=== PATIENT | female | born 1990 | race Caucasian/White ===

== ENCOUNTER → 2024-05-19 | Outpatient (CLI) | payer BC, SELFPAY ==
--- OUTSIDE RECORDS SUMMARY | 2024-05-19 19:02 | XMS RPT_ITS | CCD ---
Author Organization [facility] Care Team Providers Care Atmospheric Chemist Name Role Phone Prabhakar Calderon MD Primary Care Provider LOY JOHNSON Attending Unavailable PRABHAKAR CALDERON Primary Care Unavailable NORMA ANTONY Admitting Unavailab Prabhakar Avina MD Primary Care Provider [phone] Prabhakar Calderon MD Primary Care Provider ISH SHERMAN Attending Unavailable PRABHAKAR CALDERON Primary Care Unavailable ISH SHERMAN Attending Unavailable PRABHAKAR CALDERON Referring Unavailable PRABHAKAR CALDERON Primary Care Unavailable Allergies Allergy Classification Reported Allergen(s) Allergy Type Date of Onset Reaction(s) Facility Lanolin (1 source) Lanolin Drug Allergy 08-19-2017 Other: See Comments [facility] (20 sources) Lanolin; Translations: [LANOLIN] Drug Allergy 08-19-2017 Other: See Comments [facility] Medications Current Medications Medication Drug Class(es) Dates Sig (Normalized) Sig (Original) ibuprofen 600 mg oral tablet (7 sources) Nonsteroidal Anti-inflammatory Drug Start: 10-18-2022 take 1 tablet by mouth every six hours as needed ibuprofen (MOTRIN) 600 mg tablet Take 1 tablet by mouth every 6 hours as needed for pain. 30 tablet 0 10/18/2022 Active Comment on above: Take 1 tablet by pankaj th every 6 hours as needed for pain. norethindrone 0.35 mg oral tablet (4 sources) Start: 11-28-2022 take 1 tablet by mouth once daily Norethindrone, Contraceptive, (ORTHO MICRONOR) 0.35 mg tablet Take 1 tablet by mouth once daily. 84 tablet 4 11/28/2022 Active Comment on above: Take 1 tablet by pankaj th once daily. Xxciilnz-Hl-Dob-Fe-F A tab (12 sources) Start: 08-30-2022 take 1 tablet by mouth once daily Lntmnwyp-Bu-Pry- Fe-FA tab Take 1 tablet by mouth once daily. 0 08/30/2022 Active Comment on above: Take 1 tablet by pankaj th once daily. sertraline 25 mg oral tablet (7 sources) Serotonin Reuptake Inhibitor Start: 11-28-2022 take 1 tablet by mouth once daily sertraline (ZOLOFT) 25 mg tablet Take 1 tablet by mouth once daily. 90 tablet 4 11/28/2022 Active Start: 10-23-2022 End: 11-28-2022 take 1 tablet by mouth once daily sertraline (ZOLOFT) 50 mg tablet Take 1 tablet by mouth once daily. 30 tablet 11 10/23/2022 11/28/2022 Discontinued Comment on above: Take 1 tablet by pankaj th once daily. Completed/Discontinued Medications Medication Drug Class(es) Dates Sig (Normalized) Sig (Original) levonorgestrel 0.552854 mg/hr intrauterine system (7 sources) Progestin, Progestin-containi ng Intrauterine Device Start: 09-21-2013 End: 06-10-2022 levonorgestrel (MIRENA) 20 mcg/24 hour (5 years) IUD 1 Each by INTRAUTERINE route one time only. 0 09/21/2013 06/10/2022 Discontinued Comment on above: 1 Each by INTRAUTERI NE route one time only. Problems Active Problems Problem Classification Problem Date Documented Date Episodic/Chronic Miscellaneous mental health disorders (1 source) depression; Translations: [ depression] Episodic Mood disorders (1 source) Recurrent major depressive episodes, moderate ; Translations: [Major depressive disorder, recurrent, moderate] Chronic Other bone disease and musculoskeletal deformities (7 sources) Idiopathic scoliosis of thoracic spine; Translations: [Juvenile idiopathic scoliosis, thoracic region] Onset: 12-20-2016 12-20-2016 Chronic Other female genital disorders (1 source) Vaginal discharge; Translations: [Other specified noninflammatory disorders of vagina] 01-28-2024 Episodic Other female genital disorders (1 source) Burning sensation of vagina; Translations: [Unspecified condition associated with female genital organs and menstrual cycle] 01-28-2024 Episodic Other screening for suspected conditions (not mental disorders or infectious disease) (4 sources) Patient encounter status; Translations: [Encounter for screening for nuchal translucency] Episodic Residual codes; unclassified (1 source) Gestation period, 12 weeks; Translations: [12 weeks gestation of ] Episodic Residual codes; unclassified (1 source) Gestation period, 13 weeks; Translations: [13 weeks gestation of ] Episodic Residual codes; unclassified (1 source) Gestation period, 21 weeks; Translations: [21 weeks gestation of ] Episodic Residual codes; unclassified (1 source) Gestation period, 36 weeks; Translations: [36 weeks gestation of ] Episodic Past or Other Problems Problem Classification Problem Date Documented Da te Episodic/Chronic Early or threatened labor (3 sources) Uterine contractions present; Translations: [False labor, unspecified] Onset: 10-16-2022 Resolved: 10-16-2022 10-16-2022 Episodic Genitourinary symptoms and ill-defined conditions (9 sources) Dysuria; Translations: [Dysuria] Onset: 04-01-2008 Resolved: 10-22-2022 04-01-2008 Episodic Other bone disease and musculoskeletal deformities (17 sources) Idiopathic kyphoscoliosis; Translations: [Other idiopathic scoliosis, site unspecified] Onset: 04-13-2007 Resolved: 10-16-2022 04-13-2007 Chronic Other bone disease and musculoskeletal deformities (10 sources) Juvenile idiopathic scoliosis, thoracic region; Translations: [Scoliosis [and kyphoscoliosis], idiopathic] Onset: 12-20-2016 Resolved: 10-16-2022 12-20-2016 Chronic Other female genital disorders (9 sources) Female genital organ symptoms; Translations: [Unspecified condition associated with female genital organs and menstrual cycle] Onset: 04-01-2008 Resolved: 10-22-2022 04-01-2008 Episodic Other inflammatory condition of skin (9 sources) Pruritus of genital organs; Translations: [Anogenital pruritus, unspecified] Onset: 04-01-2008 Resolved: 10-22-2022 04-01-2008 Episodic Other and delivery including normal (20 sources) care status; Translations: [Encounter for supervision of other normal , first trimester] Onset: 06-10-2022 Resolved: 10-18-2022 Episodic Spondylosis; intervertebral disc disorders; other back problems (20 sources) Pain in thoracic spine; Translations: [Pain in thoracic spine] Onset: 12-20-2016 Resolved: 10-16-2022 12-20-2016 Episodic Results Test Name Value Interpretation Reference Range Facil ity BACTERIAL VAGINOSIS NAATon 0 01-28-2024 Lactobacillus crispatus+gasseri+j ensenii + Gardnerella vaginalis + Atopobium vaginae rRNA JODY+probe Ql (Vag fld) Negative Normal Negative for bacterial vaginosis [facility] Comment on above: Order Comment: Speci men Type: SWAB Ordering Facility: [facility] Address: [address] [place] [address] Performed By: #### 3 [id number], BVAMP #### [facility] CLIA [id number] [address] [place] [address] [place] C. trachomatis+N. gonorrhoea e DNA JODY+probe Ql (Unsp spec)on 01-28-2024 C. trachomatis rRNA JODY+probe Ql (Unsp spec) Negative Normal Negative for Chlamydia trachomatis by amplificaton [facility] Comment on above: Order Comment: Speci men Type: SWAB Ordering Facility: [facility] Address: [address] [place] [address] Performed By: #### 3 6902-5, BVAMP #### [facility] CLIA [id number] [address] [place] [address] [place] N. gonorrhoeae rRNA JODY+probe Ql (Unsp spec) Negative Normal Negative for Neisseria gonorrhoeae by amplification [facility] Comment on above: Order Comment: Speci men Type: SWAB Ordering Facility: [facility] Address: [address] [place] [address] Performed By: #### 3 6902-5, BVAMP #### [facility] CLIA [id number] [address] [place] [address] [place] ELEUTERIO/TRICHOMONAS NAATon 0 7- C. glabrata RNA JODY+probe Ql (Vag fld) Negative Normal Negative for Eleuterio glabrata [facility] Comment on above: Order Comment: Speci men Type: SWAB Ordering Facility: [facility] Address: [address] [place] [address] Performed By: #### C VTV #### [facility] CLIA [id number] [address] [place] [address] [place] Eleuterio sp DNA JODY+probe Ql (Vag fld) Positive Abnormal Negative for Eleuterio species [facility] Comment on above: Order Comment: Speci men Type: SWAB Ordering Facility: [facility] Address: [address] [place] [address] Performed By: #### C VTV #### [facility] CLIA [id number] [address] [place] [address] OF [place] T. vaginalis DNA JODY+probe Ql (Unsp spec) Negative Normal Negative for Trichomonas vaginalis by amplification [facility] Comment on above: Order Comment: Speci men Type: SWAB Ordering Facility: [facility] Address: [address] [place] [address] Performed By: #### C VTV #### [facility] CLIA [id number] [address] [place] [address] OF [place] CNOVon 01-28-2024 CNOV Office Visit (OBGYWM ) DANIA SANTOS ([id number]) 1990 F Date Time Provider Department 01/28/24 9:30 AM ISH SHERMAN OBHERIBERTO During your visit today, we recorded the following information about you: Blood pressure Weight Last Period 100/68 69.5 kg 01/11/24 Ish Sherman MD 01/28/2024 10:52 AM Signed Airfield Services Officer offered: Patient accepts, visit chaperoned by Dulce Ott LPN. Dania Santos is a 33 year old female who presents for problem visit with recurrent yeast like sympotoms despite treatment with diflucan twice and monistat. Now with partner of one years duration. Primary sx are itching and burning and would like sti screening. 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 PMH - PAST MEDICAL HISTORY OF 12/01/1997 Color Vision - Normal PAST SURGICAL HISTORY Procedure Laterality Date DANDC, DIAG AND/OR THERAPEUTIC TAB PAST SURGICAL HISTORY OF 2005 wisdom teeth removed PAST SURGICAL HISTORY OF 2009 lap mesenteric cyst removal TONSILLECTOMY PRIMARY/SECONDARY AGE 12/> 02/2007 FAMILY HISTORY Problem Relation Age of Onset Psychiatry Mother depression Migraines Mother COPD Father Stroke Father 55 other (lung cancer) Father 65 smoker Ischemic Heart Disease Father Multiple Sclerosis Sister 32 Cancer Maternal Grandmother Melanoma Maternal Grandmother Cancer Maternal Grandfather prostate No Known Problems Daughter Breast Cancer No Family History Ovarian cancer No Family History Uterine Cancer No Family History Social History Tobacco Use Smoking status: Former Packs/day: .3 Types: Cigarettes Quit date: 07/13/2015 Years since quittin.5 Smokeless tobacco: Never Vaping Use Vaping Use: Former Substances: Nicotine Substance Use Topics Alcohol use: Yes Alcohol/week: 4.0 standard drinks of alcohol Types: 4 Glasses of Wine (5oz) per week Comment: weekly - bottle over the week Drug use: Never Current Outpatient Medications Medication Sig Norethindrone, Contraceptive, (ORTHO MICRONOR) 0.35 mg tablet Take 1 tablet by mouth once daily. (Patient not taking: Reported on 01/05/2024) sertraline (ZOLOFT) 25 mg tablet Take 1 tablet by mouth once daily. (Patient not taking: Reported on 01/05/2024) ibuprofen (MOTRIN) 600 mg tablet Take 1 tablet by mouth every 6 hours as needed for pain. (Patient not taking: Reported on 01/05/2024) Ypblrzlv-Id-Nkp-Fe-FA tab Take 1 tablet by mouth once daily. (Patient not taking: Reported on 01/05/2024) No current facility-administered medications for this visit. Allergies As of Date: 01/28/2024 Allergen Noted Reaction LANOLIN 08/19/2017 Other: See Comments Fully Assessed 01/28/2024 REVIEW OF SYSTEMS Abdomen: No bloating, early satiety, indigestion, or increased flatulence. No abdominal pain, nausea, vomiting, diarrhea, or constipation. Bladder: No dysuria, gross hematuria, urinary frequency, urinary urgency, or incontinence. Breast: No breast lumps, nipple d/c, overlying skin changes, redness or skin retraction. Expanded ROS: N/A Allergies and current medication updated:Yes EXAM: BP 100/68 Wt 153 lb 3.2 oz (69.5kg) LMP 01/11/2024 GENERAL: pleasant, female in no apparent distress ABDOMEN: soft, non-tender, and no masses PELVIC: external genitalia normal, normal Bartholin's glands, urethra, Mcmurray's glands, no vulvar lesions, no cervical lesions, good vaginal support, physiologic discharge present, normal appearing perineal body and perianal region, well estrogenized, scant clumpy discharge but monistat in last 24 hrs BIMANUAL: uterus normal size, shape and consistency, anteverted, no adnexal masses, and non-tender ASSESSMENT AND PLAN: Encounter Diagnosis ICD-10-CM 1. Screen for STD (sexually transmitted disease) Z11.3 2. Vaginal discharge N89.8 3. Vaginal burning N94.9 cultures submitted Ish Sherman MD Allergies As of Date: 01/28/2024 Noted Allergy Reaction LANOLIN 08/19/2017 14 - Other: See Comments Comments: itching Date Reviewed: 01/28/2024 Reviewed by: Mary Macdonald MA - Fully Assessed Reason for Visit: STD [102] Cmt: check Primary Visit Diagnosis:Screen for STD (sexually transmitted disease) [Z11.3] Other Visit Diagnoses:Vaginal discharge [N89.8] Vaginal burning [N94.9] Order(s):GONORRHEA/CH LAMYDIA NAAT [SQGCCT] Order #: [id number] SYPHILIS TOTAL W/REFLEX [SQSYPHTX] Order #: [id number] FUTUR (more content not included)... Normal [facility] CNOVon 01-05-2024 CNOV Office Visit (OBGYWM ) DANIA SANTOS ([id number]) 1990 F Date Time Provider Department 01/05/24 8:20 AM ISH SHERMAN OBGYWM During your visit today, we recorded the following information about you: Weight Height Last Period 68.9 kg 1.689 m 12/12/23 Ish Sherman MD 01/05/2024 9:05 AM Signed Dania is a 33 year old who presents for an annual gynecologic exam , 14 mo post ,with complaints, including 3 yeast infections over the course of the past months that have now resolved. . Stopped BF 6 months ago Menses: q 4-6 weeks with 2 -6 days of flow. 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: Sexual Activity: Yes; Male Contraception: Vasectomy 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 PMH - PAST MEDICAL HISTORY OF 12/01/1997 Color Vision - Normal PAST SURGICAL HISTORY Procedure Laterality Date DANDC, DIAG AND/OR THERAPEUTIC TAB PAST SURGICAL HISTORY OF 2005 wisdom teeth removed PAST SURGICAL HISTORY OF 2009 lap mesenteric cyst removal TONSILLECTOMY PRIMARY/SECONDARY AGE 12/> 02/2007 FAMILY HISTORY Problem Relation Age of Onset Psychiatry Mother depression Migraines Mother COPD Father Stroke Father 55 other (lung cancer) Father 65 smoker Ischemic Heart Disease Father Multiple Sclerosis Sister 32 Cancer Maternal Grandmother Melanoma Maternal Grandmother Cancer Maternal Grandfather prostate No Known Problems Daughter Breast Cancer No Family History Ovarian cancer No Family History Uterine Cancer No Family History SOCIAL HISTORY Social History Tobacco Use Smoking status: Former Packs/day: .3 Types: Cigarettes Quit date: 07/13/2015 Years since quittin.4 Smokeless tobacco: Never Vaping Use Vaping Use: Former Substances: Nicotine Substance Use Topics Alcohol use: Yes Alcohol/week: 4.0 standard drinks of alcohol Types: 4 Glasses of Wine (5oz) per week Comment: weekly - bottle over the week Drug use: Never REVIEW OF SYSTEMS Abdomen: No abdominal pain, nausea, vomiting, diarrhea, or constipation. No bloating, early satiety, indigestion, or increased flatulence. Bladder: No dysuria, gross hematuria, urinary frequency, urinary urgency, or incontinence. Breast: No breast lumps, nipple d/c, overlying skin changes, redness or skin retraction. Allergies and current medication updated:Yes EXAM: Ht 5' 6.5 (1.69m) Wt 152 lb (68.9kg) LMP 12/12/2023 BMI 24.17 kg/(m2). GENERAL: pleasant, female in no apparent distress HEENT: Normocephalic, atraumatic, mucus membranes moist, and no lesions NECK: Supple, full range of motion, no adenopathy, and thyroid normal DERMATOLOGY: Normal, without lesions, non-icteric, and non-hirsute BREAST: soft, non-tender, symmetric, no dominant mass, normal nipple-areolar complex, no lymphadenopathy, and no nipple discharge CHEST: Normal inspiratory effort ABDOMEN: soft, non-tender, and no masses PELVIC: external genitalia normal, normal Bartholin's glands, urethra, Mcmurray's glands, no vulvar lesions, no cervical lesions, good vaginal support, physiologic discharge present, normal appearing perineal body and perianal region, well estrogenized BIMANUAL: uterus normal size, shape and consistency, anteverted, no adnexal masses, non-tender, and no cervical motion tenderness RECTOVAGINAL: deferred. NEURO: alert and oriented x3,exam grossly non-focal EXTREMITIES: normal ASSESSMENT/PLAN: 1) Health maintenance: Pap done with reflex HPV. 2) Contraception: vasectomy. Contraceptive options reviewed and information provided. 3) STD screening: Declined STD check. 4) Follow up one year or sooner as needed MD Wilfredo Laureano Rebecca L, MD 01/16/2024 5:17 PM Signed Send letter about normal pap if she does not have mychart. Tory Villalobos MD Referring Provider: PRABHAKAR CALDERON [[id number]] Allergies As of Date: 01/05/2024 Noted Allergy Reaction LANOLIN 08/19/2017 14 - Other: See Comments Comments: itching Date Reviewed: 01/05/2024 Reviewed by: Nida Thakur MA - Fully Assessed Reason for Visit: Yearly Exam [187] Primary Visit Diagnosis:Encounter for gynecological examination (general) (routine) without abnormal findings [Z01.419] Other Visit Diagnoses:Screening for cervical cancer [Z12.4] Encounter for screening for human papillom (more content not included)... Normal [facility] HIGH RISK HUMAN PAPILLOMA SREEKANTH (HPV), PCR FOR DETECTION AND GENOTYPINGon 01-05-2024 HPV 16 Ag Ql (Unsp spec) Not detected Normal Not detected [facility] Comment on above: Order Comment: Speci men Type: FLUID SPECIMEN Ordering Facility: [facility] Address: [address] [place] [address] Performed By: #### L [id number], HPVHRT #### [facility] CLIA [id number] [address] [place] [address] [place] HPV 18 Ag Ql (Unsp spec) Not detected Normal Not detected [facility] Comment on above: Order Comment: Speci men Type: FLUID SPECIMEN Ordering Facility: [facility] Address: [address] [place] [address] Performed By: #### L [id number], HPVHRT #### [facility] CLIA [id number] [address] [place] [address] [place] HPV 31+33+35+39+45+51+5 2+56+58+59+66+68 DNA JODY+probe Ql (Cvx) Not detected Normal Not detected [facility] Comment on above: Order Comment: Speci men Type: FLUID SPECIMEN Ordering Facility: [facility] Address: [address] [place] [address] Result Comment: High Risk HPV Other Type includes HPV types 31, 33, 35, 39, 45, 51, 52, 56, 58, 59, 66 and 68. Performed By: #### L [id number], HPVHRT #### [facility] CLIA [id number] [address] [place] [address] [place] PAP TESTon 01-05-2024 ADEQUACY Satisfactory for interpretation. Normal [facility] Comment on above: Order Comment: Speci men Type: FLUID SPECIMEN Ordering Facility: [facility] Address: [address] [place] [address] Performed By: #### L [id number], HPVHRT #### [facility] CLIA [id number] [address] [place] [address] [place] CASE REPORT Normal [facility] Comment on above: Order Comment: Speci men Type: FLUID SPECIMEN Ordering Facility: [facility] Address: [address] [place] [address] Result Comment: Gyne cologic Cytology Report Case: [id number] Authorizing Provider: Ish Sherman MD Collected: 01/05/2024 09:31 AM Ordering Location: OB/Gynecology Received: 01/05/2024 12:28 PM First Screen: [place], [place], [place], [facility] Specimen: Pap Test, ThinPrep, Cervix Performed By: #### L [id number], HPVHRT #### [facility] CLIA [id number] [address] [place] [address] [place] CLINICAL HISTORY, CYTOLOGY, HEALTH INFORMATION SPECIALIST Routine Exam Normal [facility] Comment on above: Order Comment: Speci men Type: FLUID SPECIMEN Ordering Facility: [facility] Address: [address] [place] [address] Performed By: #### L [id number], HPVHRT #### [facility] CLIA [id number] [address] [place] [address] [place] FINAL PERFORMING LAB Normal [facility] Comment on above: Order Comment: Speci men Type: FLUID SPECIMEN Ordering Facility: [facility] Address: [address] [place] [address] Result Comment: Tech nical component, attendant coin operated laundry screening performed at [facility], [address] [place] [address] CLIA# [id number] Diagnostic interpretation performed at [facility], [address] [place] [address] [place] [address] CLIA# [id number] Braille Teacher: Paresh Cornejo M.D. Performed By: #### L [id number], HPVHRT #### [facility] CLIA [id number] [address] [place] [address] [place] HPV REFLEX Yes HPV Normal [facility] Comment on above: Order Comment: Speci men Type: FLUID SPECIMEN Ordering Facility: [facility] Address: [address] [place] [address] Performed By: #### L [id number], HPVHRT #### [facility] CLIA [id number] [address] [place] [address] [place] INTERPRETATION, CYTOLOGY, HEALTH INFORMATION SPECIALIST Normal [facility] Comment on above: Order Comment: Speci men Type: FLUID SPECIMEN Ordering Facility: [facility] Address: [address] [place] [address] Result Comment: Nega tive for intraepithelial lesion or malignancy. Performed By: #### L [id number], HPVHRT #### [facility] CLIA [id number] [address] [place] [address] [place] LMP 12/12/2023 Normal [facility] Comment on above: Order Comment: Speci men Type: FLUID SPECIMEN Ordering Facility: [facility] Address: [address] [place], [place] [id number] Performed By: #### L [id number], HPVHRT #### [facility] CLIA [id number] [address] [place] [address] [place] PAP DISCLAIMER COMMENT The Pap Smear is a screening test for cervical cancer. False negative results occur with all screening tests, emphasizing the need for rescreening at recommended intervals, and clinical correlation. Normal [facility] Comment on above: Order Comment: Speci men Type: FLUID SPECIMEN Ordering Facility: [facility] Address: [address] [place] [address] Performed By: #### L [id number], HPVHRT #### [facility] CLIA [id number] [address] [place] [address] [place] PAP DAY GUARD COMMENT This specimen has been analyzed by the ThinPrep Imaging System, an automated imaging and review system, which assists the laboratory in evaluating cells on ThinPrep Pap tests. Following automated imaging, selected zamora from every slide are reviewed by a attendant coin operated laundry. Normal [facility] Comment on above: Order Comment: Speci men Type: FLUID SPECIMEN Ordering Facility: [facility] Address: [address] [place] [address] Performed By: #### L [id number], HPVHRT #### [facility] CLIA [id number] [address] [place] [address] [facility] CNDSon 10-18-2022 [facility] HNO ID: [id number] Author: Tiffanie Morel APRN.SEA Service: Obstetrics Author Type: Coal Grader Type: Discharge Summary Filed: 10/18/2022 7:47 AM Note Text: Attestation signed by Franci Mccarthy MD at 10/18/2022 8:53 AM I reviewed the pertinent patient history, HPI, vitals, and hospital course and agree with the CN's recommendation for care and disposition home. Franci Mccarthy MD DISCHARGE SUMMARY OBSTETRICS PATIENT NAME: Dania Santos ADMISSION DATE: 10/16/2022 DISCHARGE DATE: 10/18/2022 Attending Physician: Loy Johnson MD Code Status: Not on file Treatment Team: Attending Provider: Loy Johnson MD Reason for Hospitalization: Intrauterine . Principal Problem (Resolved): Encounter for elective induction of labor POA: Yes Active Problems: Chronic midline low back pain without sciatica POA: Yes Resolved Problems: Uterine contractions POA: Unknown PROCEDURES/SURGERY DURING HOSPITALIZATION: Delivery Summary: Armani Santos [[id number]] Delivery Information: Delivery Date: 10/16/22 Delivery type: Vaginal, Spontaneous Delivering Clinician: Annika Aparicio MD Vacuum Used: No Forceps Used: No Shoulder Dystocia Present: No Lacerations: None Episiotomy: None Maidens: Gender: Female Weight (grams): 3561 g One Minute : 8 Five Minute : 9 Procedures (if applicable) Hospital Course: 32 year old female who is Day #2 from delivery as noted above. Pt's peripartum course was complicated by CHRONIC BACK PAIN. The delivery was uncomplicated. Mental health issues addressed during course. No notes on file Consulting Teams During Hospitalization: Anesthesiology: EPIDURAL Patient Condition @ Discharge: Good Discharge Disposition: Home/Self Care Specific Concerns for Follow-up Post Discharge: Routine Care, Mental Health, Anemia, Incisional/Perineal Care, and Contraceptive Plan Information Provided to Patient: Activity When You Leave the Hospital Gradually increase your activity until back to normal. Walking and stairs as tolerated. You are expected to maintain pelvic rest for six weeks post which includes no sexual activity, tampons or douching. You may drive as tolerated You may shower daily. Gently pat your perineum with a soapy washcloth and rinse. Sitz baths are also helpful, but avoid baths until your bleeding has stopped. Diet Instructions Resume a regular diet with emphasis on healthy and iron rich foods. Nursing moms need 500 EXTRA calories a day to support breast milk production. Wound/Surgical Site Care Use chaparro/squirt bottle to rinse your perineal area with warm water after urination or bowel movements Use chaparro/squirt bottle to rinse your perineal area with warm water until vaginal bleeding/drainage ceases You may spot bleed for up to six week post- Discharge Medications: Current Discharge Medication List START taking these medications ibuprofen (MOTRIN) 600 mg Take 600 mg by mouth every 6 hours as needed for pain. Qty: 30 tablet Refills: 0 CONTINUE these medications which have NOT CHANGED Mqkjjtff-Wb-Imq-Fe-FA 1 tablet Take 1 tablet by mouth once daily. ALLERGIES Allergen Reactions Lanolin Other: See Comments itching Future Appointments: Follow Up Appointments Follow-Up Appointment With: Provider When: In 6 weeks Patient/Parents to call for appointment?: Yes Follow-Up Appointment With primary provider in 2 weeks Patient/Parents to call for appointment?: Yes I have performed the substantive portion including uqoe-zg-bbiy and relevant services for a total of >30 minutes. Plan of care discussed with: Provider, RN, Patient. SIGNATURE: Tiffanie Alcala APRN.CNM DATE: October 18, 2022 TIME: 7:46 AM Normal [facility] ANES POSTPROC EVALon 023 ANES POSTPROC EVAL HNO ID: [id number] Author: Faisal Carlin APRN.CRNA Service: Anesthesiology Author Type: Nurse Facilities Assistant Type: Anesthesia Postprocedure Evaluation Filed: 10/17/2022 9:34 AM Note Text: POST ANESTHESIA EVALUATION NOTE : 1990 Procedure Summary Date: 10/16/22 Room / Location: Anesthesia Start: 1832 Anesthesia Stop: 2242 Procedure: LABOR ANALGESIA Diagnosis: Scheduled Providers: Responsible Provider: Giuseppe Loza APRN.CRNA Anesthesia Type: epidural ASA Status: 2 Anesthesia Type: epidural Last Vitals Vitals Value Taken Time BP 111/66 10/17/22 0815 Temp 36.4 ?C (97.5 ?F) 10/17/22 08 Pulse 81 10/17/22 0815 Resp 16 10/17/22 0815 SpO2 98 % 10/17/22814 Tom, Girl Dania Fishman [[id number]] Baby Delivery: 10/16/2022 2243 Post Anesthesia Patient Status Patient Evaluation: bedside. Neurological Status: aware and responsive. Pulmonary Status: breathing comfortably on room air Pain Management: clinically adequate Postoperative Hydration: acceptable. Intraoperative Events: (AT am SYNTHETIC CLOTH BINDING CUTTER report off received notification of potential PPD occurance. This morning's one-on-one interview, with significant other present, patient bed in high hensley position with lights on and window open performing normal post delivery activities. No signs and symptoms at this time of PPDH. Education provided on signs and symptoms with conservative intervention. Currently, eating am meal and drinking caffienated beverage. ) no significant anesthesia events Recommendation: continue current plan of care. Anesthesia Observations No Documentation SIGNATURE: Faisal Carlin APRN.SYNTHETIC CLOTH BINDING CUTTER PATIENT NAME: Dania Santos DATE: October 17, 2022 TIME: 9:04 AM CSN: [id number] Normal [facility] LD NOTEon 10-17-2022 LD NOTE HNO ID: [id number] Author: Tiffanie Lake MD Service: Obstetrics Author Type: Resident Type: LANDD Delivery Note Filed: 10/16/2022 11:04 PM Note Text: Attestation signed by Annika Aparicio MD at 10/16/2022 11:12 PM I was present for the entire procedure and agree with above Annika Aparicio MD OBSTETRICS DELIVERY SUMMARY - VAGINAL DELIVERY Gestational Age at Delivery: 39w3d Service Date: 10/16/2022 Service Time: 11:02 PM Labor Events Rupture Date: 10/16/2022 Rupture Time: 7:50 PM Total Time from ROM to Delivery: 2h 53m Rupture Type: AROM Total Hours from ROM to Onset of Labor hours Fluid Color: Clear Fluid Odor: No Odor Induction: Yes Induction Method: AROM;Oxytocin Armani Santos [[id number]] Episiotomy/Laceration : Episiotomy: None Lacerations: None Date and Time of : Date of : 10/16/22 Time of : 2242 Delivery Information: Primary Reason for Delivery : Elective Induction Additional Clinicial Indicator(s) for delivery: N/A Delivery type: Vaginal, Spontaneous Intrapartum Complications: None Delivery between 24 - 34 weeks?: No Presentation: Vertex Shoulder Dystocia Present: No Vacuum Used: No Forceps Used: No Presentation AND Position Presentation: Vertex Position: OA Cord: Complications: None Delayed Cord Clamping: Greater than 60 sec Placenta: Delivered: 10/16/2022 10:50 PM Removal: Spontaneous Appearance: Intact Anesthesia: Method: Epidural Measurements, Apgars: Weight: 7 lb 13.6 oz Weight (gms): 3561 g One Minute : 8 Five Minute : 9 Resuscitation Team Present: No I/O Blood Loss per time range on right. 10/16/22 1043 - 10/16/22 2301 Calculated Blood Loss (mL) Hospital Encounter 300 Total 300 cc Clinical Course: Dania Santos is a 32 year old year old female who presented to [facility] with Estimated Date of Delivery: 10/20/22 at 39w3d for Elective Induction of Labor . Her course was complicated by chronic low back pain. The patient was GBS negative. Labor Course: At the time of presentation the patient was found to be 4cm dilated, 70% effaced, and at -3 station. She was started on pitocin for induction. Amniotomy was performed for clear fluid. She then received an epidural for maternal analgesia and progressed to complete cervical dilation with the vertex at +1 station. She then began to push. As the vertex was , the patient was prepped and draped in a normal sterile fashion in the dorsal lithotomy position. The vertex delivered over an intact perineum from the occiput anterior position which restituted to the maternal left. After delivery of the head, the anterior and posterior shoulders were then delivered without difficulty followed by the remainder of the 's body. The was crying spontaneously. Delayed cord clamping was performed for one minute. The cord was then doubly clamped and cut and the infant was passed above for skin to skin. The placenta delivered spontaneously. pitocin was then started. Vaginal exploration revealed no lacerations. Cervical exploration revealed no lacerations. Excellent hemostasis was noted. The patient tolerated the procedure well without complications. All needle, sponge and instrument counts were correct x2. A digital sweep of the vaginal canal was performed by Tiffanie Lake MD and it was ascertained that no instruments or other foreign bodies are retained within the cavity. Sponge, lap, and needle counts were correct times two. Mother and baby are stable and bonding and skin to skin. Baby is in mother's arms. Expected post-delivery care and anticipated transfer reviewed. Plan of care discussed with: Provider, RN, Patient. 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 Tracheostomy tube not present Mallampati: II. TM distance: >3 FB. Neck ROM: full ROM without neurological symptoms. Mouth opening: adequate. Short neck: no. Thick neck: no DENTAL Normal dental observations. Dental findings: teeth intact. II - ANESTHESIA PLAN ASA Score: 2 Anesthetic Plan: epidural The patient is not a current smoker. NPO Status: adequate Beta Jitendra Monitoring Plan Monitoring plan: standard ASA. Post Procedure Analgesic Plan Postoperative analgesic plan: multimodal analgesia. Informed Consent Patient / Responsible Green Party agrees to proceed: yes Patient / Surrogate agrees to blood products: blood products not planned Potential Anesthesia issues that may suggest increased risk of complications or contraindication to planned procedure: none. 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 - PMH - PAST MEDICAL HISTORY OF 12/01/1997 Color Vision - Normal - Vaginal delivery 2012 PAST SURGICAL HISTORY Procedure Laterality Date - DANDC, DIAG AND/OR THERAPEUTIC TAB - PAST SURGICAL HISTORY OF 2005 wisdom teeth removed - PAST SURGICAL HISTORY OF 2009 lap mesenteric cyst removal - TONSILLECTOMY PRIMARY/SECONDARY AGE 12/> 02/2007 FAMILY HISTORY Problem Relation Age of Onset - Psychiatry Mother depression - Migraines Mother - COPD Father - Stroke Father 55 - other (lung cancer) Father 65 smoker - Ischemic Heart Disease Father - Cancer Maternal Grandmother - Melanoma Maternal Grandmother - Cancer Maternal Grandfather prostate - No Known Problems Daughter - Breast Cancer No Family History - Ovarian cancer No Family History - Uterine Cancer No Family History Social History Tobacco Use - Smoking status: Former Packs/day: 0.30 Types: Cigarettes Quit date: 07/13/2015 Years since quittin.2 - Smokeless tobacco: Never Vaping Use - Vaping Use: current everyday user - Substances: Nicotine Substance Use Topics - Alcohol use: Yes Alcohol/week: 4.0 standard drinks Types: 4 Glasses of Wine (5oz) per week Comment: weekly - bottle over the week Gcdehevc-Ai-Hal-Fe-FA tab, Take 1 tablet by mouth once daily., Disp: , Rfl: Inpatient medications reviewed in [facility] I have interviewed and examined the patient. I have reviewed the medical record and/or the pre-anesthesia evaluation, pertinent labs, and test results. This contains updated information obtained within 48 hours of Surgery/Procedure. SIGNATURE: Giuseppe Loza APRN.SYNTHETIC CLOTH BINDING CUTTER PATIENT NAME: Dania Santos DATE: October 16, 2022 TIME: 6:31 PM : 1990 Normal [facility] CBC panel Auto (Bld)on 10-16 Erythrocyte distribution width (RBC) [Ratio] 12.7 % Normal 11.5-15.0 [facility] Comment on above: Order Comment: Speci men Type: BLOOD SPECIMEN Ordering Facility: [facility] Address: [address] [place] [address] Performed By: #### 5 8410-2 #### [facility] CLIA [id number] [address] [facility] Hematocrit (Bld) [Volume fraction] 35.3 % Low 36.0-46.0 [facility] Comment on above: Order Comment: Speci men Type: BLOOD SPECIMEN Ordering Facility: [facility] Address: [address] [place] [address] Performed By: #### 5 8410-2 #### [facility] CLIA [id number] [address] [facility] Hemoglobin (Bld) [Mass/Vol] 12.2 g/dL Normal 11.5-15.5 [facility] Comment on above: Order Comment: Speci men Type: BLOOD SPECIMEN Ordering Facility: [facility] Address: [address] [place] [address] Performed By: #### 5 8410-2 #### [facility] CLIA [id number] [address] MCH (RBC) [Entitic mass] 29.8 pg Normal 26.0-34.0 [facility] Comment on above: Order Comment: Speci men Type: BLOOD SPECIMEN Ordering Facility: [facility] Address: [address] [place] [address] Performed By: #### 5 8410-2 #### [facility] CLIA [id number] [address] [facility] MCHC (RBC) [Mass/Vol] 34.6 g/dL Normal 30.5-36.0 [facility] Comment on above: Order Comment: Speci men Type: BLOOD SPECIMEN Ordering Facility: [facility] Address: [address] [address] Performed By: #### 5 8410-2 #### [facility] CLIA [id number] [address] MCV (RBC) [Entitic vol] 86.1 fL Normal 80.0-100.0 [facility] Comment on above: Order Comment: Speci men Type: BLOOD SPECIMEN Ordering Facility: [facility] Address: [address] [address] Performed By: #### 5 8410-2 #### [facility] CLIA [id number] [address] Nucleated RBC (Bld) [#/Vol] 10*3/uL Normal <0.01 [facility] Comment on above: Order Comment: Speci men Type: BLOOD SPECIMEN Ordering Facility: [facility] Address: [address] [address] Performed By: #### 5 8410-2 #### [facility] CLIA [id number] [address] Platelet mean volume (Bld) [Entitic vol] 10.5 fL Normal 9.0-12.7 [facility] Comment on above: Order Comment: Speci men Type: BLOOD SPECIMEN Ordering Facility: [facility] Address: [address] [address] Performed By: #### 5 8410-2 #### [facility] CLIA [id number] [address] [place] Platelets (Bld) [#/Vol] 194 10*3/uL Normal 150-400 [facility] Comment on above: Order Comment: Speci men Type: BLOOD SPECIMEN Ordering Facility: [facility] Address: [address] [address] Performed By: #### 5 8410-2 #### [facility] CLIA [id number] [address] [place] RBC (Bld) [#/Vol] 4.10 10*6/uL Normal 3.90-5.20 [facility] Comment on above: Order Comment: Speci men Type: BLOOD SPECIMEN Ordering Facility: [facility] Address: [address] [place] [address] Performed By: #### 5 8410-2 #### [facility] CLIA [id number] [address] [facility] WBC (Bld) [#/Vol] 7.32 10*3/uL Normal 3.70-11.00 [facility] Comment on above: Order Comment: Speci men Type: BLOOD SPECIMEN Ordering Facility: [facility] Address: [address] [place] [address] Performed By: #### 5 8410-2 #### [facility] CLIA [id number] [address] TYPE + SCREEN PRENATALon ABO B Normal [facility] Comment on above: Order Comment: Speci men Type: BLOOD SPECIMENOrdering Facility: [facility] Address: [address] [place] [address] Performed By: #### T SPN ####[facility] [id number] [address] HISTORICAL AB SCR STATUS Negative Normal [facility] Comment on above: Order Comment: Speci men Type: BLOOD SPECIMENOrdering Facility: [facility] Address: [address] [place] [address] Performed By: #### T SPN ####[facility] [id number] [address] Rh Nom (Bld) Positive Normal [facility] Comment on above: Order Comment: Speci men Type: BLOOD SPECIMENOrdering Facility: [facility] Address: [address] [place] [address] Performed By: #### T SPN ####[facility] [id number] [address] TYPE AND SCREEN EXPIRATION 10/19/2022 23:59 Normal [facility] Comment on above: Order Comment: Speci men Type: BLOOD SPECIMENOrdering Facility: [facility] Address: [address] [place] [address] Performed By: #### T SPN ####[facility]CLIA [id number] [address] Urinalysis complete panel (U )on 10-16-2022 Bacteria LM.HPF (Urine sed) [#/Area] Rare Abnormal None Seen [facility] Comment on above: Order Comment: Speci men Type: URINE SPECIMENOrdering Facility: [facility] Address: [address] [place] [address] Performed By: #### 2 4356-8 ####[facility] [id number] [address] Bilirubin Ql (U) Negative Normal Negative [facility] Comment on above: Order Comment: Speci men Type: URINE SPECIMENOrdering Facility: [facility] Address: [address] [place] [address] Performed By: #### 2 4356-8 ####[facility] [id number] [address] Clarity (Unsp spec) Clear Normal Clear [facility] Comment on above: Order Comment: Speci men Type: URINE SPECIMENOrdering Facility: [facility] Address: [address] [place] [address] Performed By: #### 2 4356-8 ####[facility] [id number] [address] Color (U) Yellow Normal yellow [facility] Comment on above: Order Comment: Speci men Type: URINE SPECIMENOrdering Facility: [facility] Address: [address] [place] [address] Performed By: #### 2 4356-8 ####[facility] [id number] [address] Epithelial cells LM.HPF (Urine sed) [#/Area] Few Normal [facility] Comment on above: Order Comment: Speci men Type: URINE SPECIMENOrdering Facility: [facility] Address: [address] [place] [address] Performed By: #### 2 4356-8 ####[facility] [id number] [address] [place] Glucose Test strip (U) [Mass/Vol] Negative Normal Trace, Negative [facility] Comment on above: Order Comment: Speci men Type: URINE SPECIMENOrdering Facility: [facility] Address: [address] [place] [address] Performed By: #### 2 4356-8 ####[facility] [id number] [address] Hemoglobin Ql (U) Negative Normal Negative, Trace [facility] Comment on above: Order Comment: Speci men Type: URINE SPECIMENOrdering Facility: [facility] Address: [address] [place] [address] Performed By: #### 2 4356-8 ####[facility] [id number] [address] Ketones Ql (U) Trace Normal Negative, Trace [facility] Comment on above: Order Comment: Speci men Type: URINE SPECIMENOrdering Facility: [facility] Address: [address] [place] [address] Performed By: #### 2 4356-8 ####[facility] [id number] [address] Leukocyte esterase Test strip Ql (U) Negative Normal Negative, 25 Paulino/uL [facility] Comment on above: Order Comment: Speci men Type: URINE SPECIMENOrdering Facility: [facility] Address: [address] [place] [address] Performed By: #### 2 4356-8 ####[facility]ORY[facility]IA [id number] [place] [address] [place] Nitrite Ql (U) Negative Normal Negative [facility] Comment on above: Order Comment: Speci men Type: URINE SPECIMENOrdering Facility: [facility] Address: [address] [place] [address] Performed By: #### 2 4356-8 ####[facility] [id number] [address] [place] pH (U) 7.0 [pH] Normal 5.0-8.0 [facility] Comment on above: Order Comment: Speci men Type: URINE SPECIMENOrdering Facility: [facility] Address: [address] [place] [address] Performed By: #### 2 4356-8 ####[facility]ORY[facility] [id number] [address] [facility] Protein (U) [Mass/Vol] 1+ Abnormal Trace, Negative [facility] Comment on above: Order Comment: Speci men Type: URINE SPECIMENOrdering Facility: [facility] Address: [address] [place] [address] Performed By: #### 2 4356-8 ####[facility]ORYCL[facility] [id number] [address] RBC LM.HPF (Urine sed) [#/Area] 0-3 /HPF Normal 0-3 /HPF [facility] Comment on above: Order Comment: Speci men Type: URINE SPECIMENOrdering Facility: [facility] Address: [address] [place] [address] Performed By: #### 2 4356-8 ####[facility] [id number] [address] [place] Specific gravity (U) [Rel density] 1.034 High 1.005-1.030 [facility] Comment on above: Order Comment: Speci men Type: URINE SPECIMENOrdering Facility: [facility] Address: [address] [place] [address] Performed By: #### 2 4356-8 ####[facility]ORY[facility] [id number] [address] Urobilinogen Ql (U) 1+ Abnormal Negative [facility] Comment on above: Order Comment: Speci men Type: URINE SPECIMENOrdering Facility: [facility] Address: [address] [address] Performed By: #### 2 4356-8 ####[facility]ORYCLIA [id number] [address] [facility] WBC LM.HPF (Urine sed) [#/Area] 0-5 /HPF Normal 0-5 /HPF [facility] Comment on above: Order Comment: Speci men Type: URINE SPECIMENOrdering Facility: [facility] Address: [address] [address] Performed By: #### 2 4356-8 ####[facility] [id number] [address] [place] URINE OB DIP B/Oon 3 Glucose Ql (U) Negative Neg mg/dL [facility] Protein.monoclonal (U) [Mass/Vol] Negative Neg mg/dL [facility] URINE OB DIP B/Oon 3 Glucose Ql (U) Negative Neg mg/dL [facility] Protein.monoclonal (U) [Mass/Vol] Negative Neg mg/dL [facility] URINE OB DIP B/Oon 3 Glucose Ql (U) Negative Neg mg/dL [facility] Protein.monoclonal (U) [Mass/Vol] Negative Neg mg/dL [facility] URINE OB DIP B/Oon 3 Glucose Ql (U) Negative Neg mg/dL [facility] Protein.monoclonal (U) [Mass/Vol] Negative Neg mg/dL [facility] URINE OB DIP B/Oon 3 Glucose Ql (U) Negative Neg mg/dL [facility] Protein.monoclonal (U) [Mass/Vol] Negative Neg mg/dL [facility] URINE OB DIP B/Oon 2 Glucose Ql (U) Negative Neg mg/dL [facility] Protein.monoclonal (U) [Mass/Vol] Negative Neg mg/dL [facility] URINE OB DIP B/Oon 2 Glucose Ql (U) Negative Neg mg/dL [facility] Protein.monoclonal (U) [Mass/Vol] Negative Neg mg/dL [facility] URINE OB DIP B/Oon 2 Glucose Ql (U) Negative Neg mg/dL [facility] Protein.monoclonal (U) [Mass/Vol] Negative Neg mg/dL [facility] OBSTETRIC ULTRASOUND WHIon 0 03-19-2022 [facility] RUBELLA IGG ABon 03-04-2022 Rubella IgG, Qual Positive Positive [facility] HBV surface Ab IA Ql (S)on 0 03-02-2022 HBV surface Ag Ql (S) Negative Negative [facility] HEP C AB IA W/CONF SCRNon HCV Ab Ql (S) Negative Negative [facility] HIV 1+2 Ab IA Qlon 2 HIV 1 and [address] [facility] HIV 1+2 Ab+HIV1 p24 Ag IA Ql Non-Reactive Nonreactive [facility] HIV Interpretation [facility] Reagin and Treponema pallidu m IgG and IgM [Interp]on 03-02-2022 Syphilis Interpretation Cannot exclude recent Treponemal infection if specimen collected within 7-10 days after appearance of suspect lesions or 2-3 weeks after an exposure. Clinical correlation is required. [facility] T. pallidum IgG+IgM IA Ql (S) Non-Reactive Nonreactive [facility] CBC W Auto Differential pane l (Bld)on 03-01-2022 Basophils (Bld) [#/Vol] <0.11 k/uL [facility] Basophils/100 WBC (Bld) 0.3 % [facility] Differential cell count method Nom (Bld) Auto [facility] Eosinophils (Bld) [#/Vol] 0.03 10*3/uL <0.46 k/uL [facility] Eosinophils/100 WBC (Bld) 0.5 % [facility] Erythrocyte distribution width (RBC) [Ratio] 12.8 % 11.5 - 15.0 % [facility] Hematocrit (Bld) [Volume fraction] 38.8 % 36.0 - 46.0 % [facility] Hemoglobin (Bld) [Mass/Vol] 13.3 g/dL 11.5 - 15.5 g/dL [facility] Lymphocytes (Bld) [#/Vol] 1.09 10*3/uL 1.00 - 4.00 k/uL [facility] Lymphocytes/100 WBC (Bld) 18.4 % [facility] MCH (RBC) [Entitic mass] 29.6 pg 26.0 - 34.[address] [facility] MCHC (RBC) [Mass/Vol] 34.3 g/dL 30.5 - 36.0 g/dL [facility] MCV (RBC) [Entitic vol] 86.4 fL 80.0 - 100.[address] [facility] Monocytes (Bld) [#/Vol] 0.32 10*3/uL <0.87 k/uL [facility] Monocytes/100 WBC (Bld) 5.4 % [facility] Neutrophils (Bld) [#/Vol] 4.46 10*3/uL 1.45 - 7.50 k/uL [facility] Neutrophils/100 WBC (Bld) 75.4 % [facility] Platelet mean volume (Bld) [Entitic vol] 11.2 fL 9.0 - 12.[address] [facility] Platelets (Bld) [#/Vol] 179 10*3/uL 150 - 400 k/uL [facility] RBC (Bld) [#/Vol] 4.49 10*6/uL 3.90 - 5.20 m/uL [facility] WBC (Bld) [#/Vol] 5.92 10*3/uL 3.70 - 11.00 k/u L [facility] TYPE + SCREEN PRENATALon ABO B [facility] HIstorical Ab Scr Status Negative [facility] Rh Nom (Bld) Positive [facility] Type and Screen Expiration 03/04/2022 23:59 [facility] US DOPPLER COMPLETEon 2020 US DOPPLER COMPLETE * * *Final Report* * * DATE OF EXAM: Jan 05 2021 10:48AM KIARRA 1033 - US DOPPLER COMPLETE / PROCEDURE REASON: Z30.431-IUD check up * * * * Physician Interpretation * * * * EXAMINATION: TRANSVAGINAL AND LIMITED TRANSABDOMINAL PELVIC ULTRASOUND HISTORY: Clinical information: IUD check up TECHNIQUE: Sonography of the pelvis was performed by transvaginal and transabdominal (limited) techniques. Images were obtained and stored in a permanent archive. MQ: UFP_1 COMPARISON: 08/17/2020 RESULT: Uterus size: 7.5 x 4.6 x 3.8 cm. IUD is noted. Position is unremarkable. -Orientation: Anteverted -Myometrium: Normal sonographic appearance. -Endometrial echo complex: 0.2 cm -Cervix: Nabothian cysts Right ovary: 2.6 x 2.2 x 1.1 cm Left ovary: 4.9 x 2.4 x 1.6 cm Multiple simple cysts in each ovary is are located in the periphery of each ovary. There is a septated cyst 1.6 x 1.0 x 1.1 cm previously measured 2.5 x 1.8 x 2.2 cm. It also a second complex cyst measuring 1.0 cm in size in the LEFT ovary Pelvis free fluid: IMPRESSION: 1. Position of the IUD is unremarkable 2. The ovaries might suggest polycystic ovaries. Clinical correlation 3. Ingestion of 2 complex cysts LEFT ovary Studio Musician: TANI Transcribe Date/Time: Jan 05 2021 11:45A Dictated by : PAUL LIN DO This examination was interpreted and the report reviewed and electronically signed by: PAUL LIN DO on Jan 05 2021 11:50AM EST [id number] N [facility] US FEMALE PELVIS TRANSVAGon 01-05-2021 US FEMALE PELVIS TRANSVAG * * *Final Report* * * DATE OF EXAM: Jan 05 2021 10:48AM MDU 1060 - US FEMALE PELVIS TRANSVAG / PROCEDURE REASON: Z30.431-IUD check up * * * * Physician Interpretation * * * * EXAMINATION: TRANSVAGINAL AND LIMITED TRANSABDOMINAL PELVIC ULTRASOUND HISTORY: Clinical information: IUD check up TECHNIQUE: Sonography of the pelvis was performed by transvaginal and transabdominal (limited) techniques. Images were obtained and stored in a permanent archive. MQ: UFP_1 COMPARISON: 08/17/2020 RESULT: Uterus size: 7.5 x 4.6 x 3.8 cm. IUD is noted. Position is unremarkable. -Orientation: Anteverted -Myometrium: Normal sonographic appearance. -Endometrial echo complex: 0.2 cm -Cervix: Nabothian cysts Right ovary: 2.6 x 2.2 x 1.1 cm Left ovary: 4.9 x 2.4 x 1.6 cm Multiple simple cysts in each ovary is are located in the periphery of each ovary. There is a septated cyst 1.6 x 1.0 x 1.1 cm previously measured 2.5 x 1.8 x 2.2 cm. It also a second complex cyst measuring 1.0 cm in size in the LEFT ovary Pelvis free fluid: IMPRESSION: 1. Position of the IUD is unremarkable 2. The ovaries might suggest polycystic ovaries. Clinical correlation 3. Ingestion of 2 complex cysts LEFT ovary Studio Musician: TANI Transcribe Date/Time: Jan 05 2021 11:45A Dictated by : PAUL LIN DO This examination was interpreted and the report reviewed and electronically signed by: PAUL LIN DO on Jan 05 2021 11:50AM EST [id number] N [facility] US FEMALE PELVIS TRANSVAGon 08-17-2020 US FEMALE PELVIS TRANSVAG * * *Final Report* * * DATE OF EXAM: Aug 17 2020 2:34PM [facility]U 1060 - US FEMALE PELVIS TRANSVAG / PROCEDURE REASON: Z30.431-IUD check up * * * * Physician Interpretation * * * * EXAMINATION: TRANSVAGINAL AND LIMITED TRANSABDOMINAL PELVIC ULTRASOUND HISTORY: Clinical information: IUD check up TECHNIQUE: Sonography of the pelvis was performed by transvaginal and transabdominal (limited) techniques. Images were obtained and stored in a permanent archive. MQ: UFP_1 COMPARISON: None RESULT: Uterus size: 7.3 x 5.3 x 4.0 cm. IUD is noted. Position is unremarkable. -Orientation: Retroflexed -Myometrium: Normal sonographic appearance. -Endometrial echo complex: 0.2 cm -Cervix: normal There are prominent veins in the periphery of the uterus Right ovary: 4.6 x 2.0 x 1.7 cm Multiple small cysts are seen in the periphery of the RIGHT ovary Left ovary: 4.6 x 3.1 x 2.4 cm Complex cystic lesion in the LEFT ovary measures 2.5 x 1.8 x 2.2 cm Pelvis free fluid: None. IMPRESSION: 1. IUD position appears unremarkable 2. Complex cystic lesion in the LEFT ovary. If no further evaluation is performed at this time then a follow-up is suggested in 2 months. 3. Prominent venous structures within the periphery of the uterus this can be associated with pelvic congestion syndrome. Studio Musician: TANI Transcribe Date/Time: Aug 17 2020 2:37P Dictated by : PAUL LIN DO This examination was interpreted and the report reviewed and electronically signed by: PAUL LIN DO on Aug 17 2020 2:42PM EST [id number] N [facility] Vital Signs Date Time Vital Sign Value Performing Clinician Nicky recinos 01-28-2024 10:12-0400 Body mass index (BMI) [Ratio] 24.36 kg/m2 Ish Sherman MD Work Phone: [facility] 01-28-2024 10:12-0400 Body weight 69.49 kg Ish Sherman MD Work Phone: [facility] 01-28-2024 10:12-0400 Diastolic blood pressure 68 mm[Hg] Ish Sherman MD Work Phone: [facility] 01-28-2024 10:12-0400 Systolic blood pressure 100 mm[Hg] Ish Sherman MD Work Phone: [facility] 01-05-2024 08:10-0400 Body height 168.9 cm Ish Sherman MD Work Phone: [facility] 01-05-2024 08:10-0400 Body mass index (BMI) [Ratio] 24.17 kg/m2 Ish Sherman MD Work Phone: [facility] 01-05-2024 08:10-0400 Body weight 68.95 kg Ish Sherman MD Work Phone: [facility] 11-28-2022 11:35-0400 Body weight 78.36 kg Loy Johnson MD Work Phone: [facility] 11-28-2022 11:35-0400 Diastolic blood pressure 58 mm[Hg] Loy Johnson MD Work Phone: [facility] 11-28-2022 11:35-0400 Systolic blood pressure 112 mm[Hg] Loy Johnson MD Work Phone: [facility] 10-11-2022 08:13-0400 Body weight 88.45 kg Loy Johnson MD Work Phone: [facility] 10-11-2022 08:13-0400 Diastolic blood pressure 72 mm[Hg] Loy Johnson MD Work Phone: [facility] 10-11-2022 08:13-0400 Heart rate 90 /min Loy Johnson MD Work Phone: [facility] 10-11-2022 08:13-0400 Systolic blood pressure 122 mm[Hg] Loy Johnson MD Work Phone: [facility] 10-04-2022 10:05-0500 Body weight 88.45 kg Loy Johnson MD Work Phone: [facility] 10-04-2022 10:05-0500 Diastolic blood pressure 70 mm[Hg] Loy Johnson MD Work Phone: [facility] 10-04-2022 10:05-0500 Heart rate 90 /min Loy Johnson MD Work Phone: [facility] 10-04-2022 10:05-0500 Systolic blood pressure 124 mm[Hg] Loy Johnson MD Work Phone: [facility] 09-27-2022 09:33-0500 Body weight 88.45 kg Lisa Lopez APRN.CN P Work Phone: [facility] 09-27-2022 09:33-0500 Diastolic blood pressure 70 mm[Hg] Lisa Lopez APRNRodneyNEWSPAPER PRESS OPERATOR APPRENTICE Work Phone: [facility] 09-27-2022 09:33-0500 Heart rate 94 /min Lisa Lopez APRNRodneyCN P Work Phone: [facility] 09-27-2022 09:33-0500 SaO2% (BldA) [Mass fraction] 98 % Lisa Lopez MIXER TENDER.NEWSPAPER PRESS OPERATOR APPRENTICE Work Phone: [facility] 09-27-2022 09:33-0500 Systolic blood pressure 122 mm[Hg] Lisa Lopez NEWSPAPER PRESS OPERATOR APPRENTICE Work Phone: [facility] 09-20-2022 08:26-0500 Body weight 88 kg Loy Johnson MD Work Phone: [facility] 09-20-2022 08:26-0500 Diastolic blood pressure 72 mm[Hg] Loy Johnson MD Work Phone: [facility] 09-20-2022 08:26-0500 Heart rate 86 /min Loy Johnson MD Work Phone: [facility] 09-20-2022 08:26-0500 Systolic blood pressure 118 mm[Hg] Loy Johnson MD Work Phone: [facility] 2022 10:02-0500 Body weight 83.01 kg Loy Johnson MD Work Phone: [facility] 2022 10:02-0500 Diastolic blood pressure 72 mm[Hg] Loy Johnson MD Work Phone: [facility] 2022 10:02-0500 Heart rate 85 /min Loy Johnson MD Work Phone: [facility] 2022 10:02-0500 Systolic blood pressure 122 mm[Hg] Loy Johnson MD Work Phone: [facility] 07-12-2022 10:02-0500 Body weight 79.38 kg Loy Johnson MD Work Phone: [facility] 07-12-2022 10:02-0500 Diastolic blood pressure 68 mm[Hg] Loy Johnson MD Work Phone: [facility] 07-12-2022 10:02-0500 Heart rate 85 /min Loy Johnson MD Work Phone: [facility] 07-12-2022 10:02-0500 Systolic blood pressure 104 mm[Hg] Loy Johnson MD Work Phone: [facility] 06-10-2022 10:36-0500 Body weight 76.2 kg Lisa Lopez MIXER TENDER.CN P Work Phone: [facility] 06-10-2022 10:36-0500 Diastolic blood pressure 72 mm[Hg] Lisa Lopez MIXER TENDER.NEWSPAPER PRESS OPERATOR APPRENTICE Work Phone: [facility] 06-10-2022 10:36-0500 Heart rate 78 /min Lisa Cylyn MIXER TENDER.CN P Work Phone: [facility] 06-10-2022 10:36-0500 Systolic blood pressure 116 mm[Hg] Lisa Benoitlyn MIXER TENDER.NEWSPAPER PRESS OPERATOR APPRENTICE Work Phone: [facility] 05-10-2022 08:03-0400 Body weight 71.67 kg Loy Johnson MD Work Phone: [facility] 05-10-2022 08:03-0400 Diastolic blood pressure 76 mm[Hg] Loy Johnson MD Work Phone: [facility] 05-10-2022 08:03-0400 Heart rate 74 /min Loy Johnson MD Work Phone: [facility] 05-10-2022 08:03-0400 SaO2% (BldA) [Mass fraction] 99 % Loy Johnson MD Work Phone: [facility] 05-10-2022 08:03-0400 Systolic blood pressure 118 mm[Hg] Loy Johnson MD Work Phone: [facility] 04-16-2022 15:13-0400 Body height 167.6 cm Mara Iniguez MD Work Phone: [facility] 04-16-2022 15:13-0400 Body weight 71.67 kg Mara Iniguez MD Work Phone: [facility] 04-15-2022 13:07-0400 Body weight 71.67 kg Lisa Lopez MIXER TENDER.CN P Work Phone: [facility] 04-15-2022 13:07-0400 Diastolic blood pressure 64 mm[Hg] Lisa Cylyn CUNNINGHAMN.NEWSPAPER PRESS OPERATOR APPRENTICE Work Phone: [facility] 04-15-2022 13:07-0400 Heart rate 82 /min Lisa Jessica ALLEN.CN P Work Phone: [facility] 04-15-2022 13:07-0400 Systolic blood pressure 114 mm[Hg] Lisa Benoitlyn CUNNINGHAMN.NEWSPAPER PRESS OPERATOR APPRENTICE Work Phone: [facility] 03-01-2022 10:02-0400 Body height 167.6 cm Loy Johnson MD Work Phone: [facility] 03-01-2022 10:02-0400 Body weight 67.59 kg Loy Johnson MD Work Phone: [facility] 03-01-2022 10:02-0400 Diastolic blood pressure 72 mm[Hg] Loy Johnson MD Work Phone: [facility] 03-01-2022 10:02-0400 Systolic blood pressure 106 mm[Hg] Loy Johnson MD Work Phone: [facility] Encounters Encounter Date Encounter Type Care Provider Facility Start: 01-28-2024 End: 01-28-2024 ambulatory ISH SHERMAN Facility:[facility] Start: 01-28-2024 End: 01-28-2024 Patient encounter procedure Ish Sherman MD Work Phone: OB/Gynecology Comment on above: Screen for STD (sexu ally transmitted disease) (Primary Dx); Vaginal discharge; Vaginal burning Start: 01-27-2024 ambulatory Ish lala MD Work Phone: OB/Gynecology Comment on above: Reoccurring Yeast In fection Start: 01-05-2024 End: 01-05-2024 ambulatory ISH SHERMAN Facility:[facility] Start: 01-05-2024 End: 01-05-2024 Patient encounter procedure Ish Sherman MD Work Phone: OB/Gynecology Comment on above: Encounter for gyneco logical examination (general) (routine) without abnormal findings (Primary Dx); Screening for cervical cancer; Encounter for screening for human papillomavirus (HPV) Start: 01-05-2024 End: 01-05-2024 Patient encounter status Ish Sherman MD Work Phone: [facility] Start: 11-28-2022 End: 11-28-2022 Patient encounter procedure Loy Johnson MD Work Phone: Obstetrics/Gynecolo gy Comment on above: state (Pr imary Dx) Start: 11-08-2022 End: 11-08-2022 Patient encounter procedure Lisa Lopez APRN.NEWSPAPER PRESS OPERATOR APPRENTICE Work Phone: OB/Gynecology Comment on above: depressio n (Primary Dx) Start: 10-22-2022 ambulatory Lisa BECKMANN.NEWSPAPER PRESS OPERATOR APPRENTICE Work Phone: OB/Gynecology Comment on above: depressio n and anxiety Start: 10-16-2022 End: 10-18-2022 Evaluation and management of inpatient LOY JOHNOSN Facility:[facility] Start: 10-13-2022 ambulatory Loy kumar MD Work Phone: OB/Gynecology Comment on above: Induction Start: 10-11-2022 End: 10-11-2022 Patient encounter procedure Loy Johnson MD Work Phone: OB/Gynecology Comment on above: care, subse quent in third trimester (Primary Dx) Start: 10-04-2022 End: 10-04-2022 Patient encounter procedure Loy Johnson MD Work Phone: OB/Gynecology Comment on above: care, subse quent in third trimester (Primary Dx) Start: 09-27-2022 End: 09-27-2022 Patient encounter procedure Lisa Lopez APRN.NEWSPAPER PRESS OPERATOR APPRENTICE Work Phone: OB/Gynecology Comment on above: Encounter for superv ision of other normal , third trimester (Primary Dx); 36 weeks gestation of Start: 09-20-2022 End: 09-20-2022 Patient encounter procedure Loy Johnson MD Work Phone: OB/Gynecology Comment on above: Encounter for superv ision of other normal , third trimester (Primary Dx) Start: 2022 End: 2022 Patient encounter procedure Loy Johnson MD Work Phone: OB/Gynecology Comment on above: Encounter for superv ision of normal first in third trimester (Primary Dx) Start: 07-12-2022 End: 07-12-2022 Patient encounter procedure Loy Johnson MD Work Phone: OB/Gynecology Comment on above: care, subse quent in second trimester (Primary Dx) Start: 06-10-2022 End: 06-10-2022 Patient encounter procedure Lisa Lopez APRN.NEWSPAPER PRESS OPERATOR APPRENTICE Work Phone: OB/Gynecology Comment on above: Encounter for superv ision of other normal , second trimester (Primary Dx); Chronic midline low back pain without sciatica; 21 weeks gestation of Start: 05-10-2022 End: 05-10-2022 Patient encounter procedure Loy Johnson MD Work Phone: OB/Gynecology Comment on above: care, subse quent in second trimester (Primary Dx) Start: 04-16-2022 End: 04-16-2022 Patient encounter procedure Mara Iniguez MD Work Phone: Maternal Medicine Comment on above: Encounter for (NT) n uchal translucency scan (Primary Dx); 13 weeks gestation of Start: 04-15-2022 End: 04-15-2022 Patient encounter procedure Lisa Lopez APRN.NEWSPAPER PRESS OPERATOR APPRENTICE Work Phone: OB/Gynecology Comment on above: Encounter for superv ision of other normal in first trimester (Primary Dx); 12 weeks gestation of Start: 03-01-2022 End: 03-01-2022 Patient encounter procedure Loy Johnson MD Work Phone: OB/Gynecology Comment on above: care, subse quent in first trimester (Primary Dx) Start: 02-27-2022 Telephone encounter Gis Professor RN Maternal Medicine Comment on above: Care Coordination (O B Peter pool) Start: 02-25-2022 ambulatory Norma mcneal MD Work Phone: Obstetrics/Gynecolo gy Comment on above: Procedures Date Procedure Procedure Detail Performing Clinician Start: 10-16-2022 Antibody screen LOY TUCKER Comment on above: Order Comment: Speci men Type: BLOOD SPECIMENOrdering Facility: [facility] Address: [address] [place], [place] [id number] Performed By: #### T SPN ####[facility] BLOOD BANKCLIA [id number] [place] [address] [place] Start: 10-11-2022 URINE OB DIP B/O Loy Johnson MD Work Phone: Start: 10-04-2022 URINE OB DIP B/O Loy Johnson MD Work Phone: Start: 09-27-2022 URINE OB DIP B/O Lisa Lopez MIXER TENDER.NEWSPAPER PRESS OPERATOR APPRENTICE Work Phone: Start: 09-20-2022 URINE OB DIP B/O Loy Johnson MD Work Phone: Start: 2022 URINE OB DIP B/O Loy Johnson MD Work Phone: Start: 06-10-2022 URINE OB DIP B/O Lisa Lopez MIXER TENDER.NEWSPAPER PRESS OPERATOR APPRENTICE Work Phone: Start: 05-10-2022 URINE OB DIP B/O Loy Johnson MD Work Phone: Start: 04-16-2022 Us nuchal translucency 1st gestation Lisa Lopez MIXER TENDER.NEWSPAPER PRESS OPERATOR APPRENTICE Work Phone: Start: 04-15-2022 URINE OB DIP B/O Lisa Lopez MIXER TENDER.NEWSPAPER PRESS OPERATOR APPRENTICE Work Phone: Start: 03-19-2022 Us preg uterus after 1st trimest / gestation Loy Johnson MD Work Phone: Start: 03-01-2022 Antibody screen Loy Tucker MD Work Phone: Start: 04-12-2021 Adult depression scr eening assessment Norma Moreno MD Work Phone: Plan of Treatment Date Care Activity Detail Author Start: [address] [facility] Start: 04-12-2031 Urine microalbumin profile DTAP,TDAP,TD (8 - Td or Tdap) [facility] Start: 01-04-2029 Screening for malignant neoplasm of cervix Cervical Cancer Screening [facility] Start: 08-16-2025 HPV TESTING HPV TESTING [facility] Start: 08-16-2025 PAP TEST[address]AP TESTING [facility] Start: 08-16-2025 Screening for malignant neoplasm of cervix Cervical Cancer Screening [facility] Start: 01-05-2025 End: 01-05-2025 Patient encounter procedure 01/05/2025 8:00 AM EDT Office Visit OB/Gynecology [address] [place], [place] [id number] Ish Sherman MD [address] [place] [address] Annual OB/Gynecology Comment on above: Annual Start: 03-28-2024 Influenza vaccination Influenza Vacc ine (#1) [facility] Start: 01-28-2024 End: 04-28-2024 Hepatitis B virus surface Ag [Presence] in Serum HEPATITIS B SURFACE ANTIGEN Lab Routine Screen for STD (sexually transmitted disease) Expected: 01/28/2024, Expires: 04/28/2024 [facility] Comment on above: Expected: 01/28/2024 , Expires: 04/28/2024 Start: 01-28-2024 End: 04-28-2024 Hepatitis C virus Ab [Presence] in Serum HEPATITIS C ANTIBODY IA WITH CONFIRMATION Lab Routine Screen for STD (sexually transmitted disease) Expected: 01/28/2024, Expires: 04/28/2024 [facility] Comment on above: Expected: 01/28/2024 , Expires: 04/28/2024 Start: 01-28-2024 End: 04-28-2024 HIV 1+2 Ab [Presence] in Serum or Plasma by Immunoassay HIV 1/2 COMBO WITH REFLEX TO DIFFERENTIATION Lab Routine Screen for STD (sexually transmitted disease) Expected: 01/28/2024, Expires: 04/28/2024 [facility] Comment on above: Expected: 01/28/2024 , Expires: 04/28/2024 Start: 01-28-2024 End: 04-28-2024 SYPHILIS TOTAL W/REFLEX SYPHILIS TOTAL W/REFLEX Lab Routine Screen for STD (sexually transmitted disease) Expected: 01/28/2024, Expires: 04/28/2024 [facility] Work Phone: Comment on above: Expected: 01/28/2024 , Expires: 04/28/2024 Start: 01-28-2024 End: 01-28-2024 Patient encounter procedure 01/28/2024 9:30 AM EDT Office Visit OB/Gynecology [address] [place] [address] Ish Sherman MD [address] [place] [address] STD testing OB/Gynecology Comment on above: STD testing Start: 07-28-2023 Behavioral Health Screening Behavioral Health Screening [facility] Start: 03-28-2023 Covid-19 Vaccine ( season) Covid-19 Vaccine ( season) [facility] Start: 03-28-2023 Influenza vaccination INFLUENZA (Sea son Ended) [facility] Start: 07-28-2022 DEPRESSION ASSESSMENT DEPRESSION ASS ESSMENT [facility] Start: 07-12-2022 End: 09-11-2022 GEST GLUC SCREEN, 1-HR, 50 GM, NON-FASTING GEST GLUC SCREEN, 1-HR, 50 GM, NON-FASTING Lab Routine care, subsequent in second trimester Expected: 07/12/2022, Expires: 09/11/2022 [facility] Work Phone: Comment on above: Expected: 07/12/2022 , Expires: 09/11/2022 Start: 05-10-2022 End: 07-10-2022 ALPHA FETOPRO MATERNAL [facility] Work Phone: Comment on above: Expected: 05/10/2022 , Expires: 07/10/2022 Start: 04-16-2022 End: 06-16-2022 Chromosome 21 trisomy [Presence] in Blood or Tissue by Cytogenetics [id number] PLUS Lab Routine Encounter for (NT) nuchal translucency scan 13 weeks gestation of Expected: 04/16/2022, Expires: 06/16/2022 [facility] Work Phone: Comment on above: Expected: 04/16/2022 , Expires: 06/16/2022 Start: 04-12-2022 Adult depression screening assessment DEPRESSION SCREENING [facility] Start: 03-28-2022 Influenza vaccination INFLUENZA (#1) [facility] Start: 07-28-2021 DEPRESSION ASSESSMENT DEPRESSION ASS ESSMENT [facility] Start: 02-10-2021 COVID-19 VACCINE (3 - Booster for Pfizer series) COVID-19 VACCINE (3 - Booster for Pfizer series) [facility] Start: 11-08-2020 COVID-19 VACCINE (3 - Booster for Pfizer series) COVID-19 VACCINE (3 - Booster for Pfizer series) [facility] BACTERIAL VAGINOSIS NAAT BACTERIAL VAGINOSIS NAAT Lab Routine Screen for STD (sexually transmitted disease) Vaginal discharge Vaginal burning 01/28/2024 11:[address] [facility] ELEUTERIO/TRICHOMONAS NAAT ELEUTERIO/TRICHOMONAS NAAT Lab Routine Screen for STD (sexually transmitted disease) Vaginal discharge Vaginal burning 01/28/2024 11:[address] [facility] Chlamydia trachomatis+Neisseria gonorrhoeae DNA [Presence] in Unspecified specimen by JODY with probe detection GC/CHLAMYDIA DNA DET Lab Routine Encounter for supervision of other normal in first trimester 04/15/2022 1:54 PM EDT [facility] Work Phone: Chlamydia trachomatis+Neisseria gonorrhoeae DNA [Presence] in Unspecified specimen by JODY with probe detection GONORRHEA/CHLAMYDIA NAAT Lab Routine Screen for STD (sexually transmitted disease) Vaginal discharge Vaginal burning 01/28/2024 11:[address] [facility] Chlamydia trachomatis+Neisseria gonorrhoeae DNA [Presence] in Urine by JODY with probe detection GC/CHLAMYDIA AMPLIF, URINE Microbiology Routine care, subsequent in first trimester Ordered: 03/01/2022 [facility] Work Phone: Comment on above: Ordered: 03/01/2022 NUCHAL TRANSLUC[facility]Y [facility]UCHAL [facility] Anc Imaging Routine Encounter for supervision of other normal in first trimester Ordered: 04/15/2022 [facility] Work Phone: Comment on above: Ordered: 04/15/2022 OBSTETRIC ULTRASOUND [facility] OBSTETRIC ULTRASOUND [facility] Anc Imaging Routine Encounter for supervision of other normal in first trimester Ordered: 04/15/2022 [facility] Work Phone: Comment on above: Ordered: 04/15/2022 PAP TEST PAP TEST Lab Rou abby Encounter for gynecological examination (general) (routine) without abnormal findings Screening for cervical cancer Encounter for screening for human papillomavirus (HPV) 01/05/2024 9:31 AM EDT [facility] Work Phone: ROUTINE, GROUP B STREP PCR ROUTINE, GROUP B STREP PCR Microbiology Routine Encounter for supervision of other normal , third trimester Ordered: 09/27/2022 [facility] Work Phone: Comment on above: Ordered: 09/27/2022 [facility] Immunizations Immunization Date Immunization Notes Care Provider [facility] 04-15-2023 influenza virus vaccine, unspecified formulation Ish Sherman MD Work Phone: [facility] 2022 tetanus toxoid, redu nola diphtheria toxoid, and acellular pertussis vaccine, adsorbed Loy Johnson MD Work Phone: [facility] 04-12-2021 influenza, injectabl e, quadrivalent, contains preservative Norma Moreno MD Work Phone: [facility] 04-12-2021 tetanus toxoid, redu nola diphtheria toxoid, and acellular pertussis vaccine, adsorbed Norma Moreno MD Work Phone: [facility] 04-25-2020 influenza, injectabl e, quadrivalent, contains preservative Norma Moreno MD Work Phone: [facility] 04-25-2020 pneumococcal polysaccharide vaccine, 23 valent Norma Moreno MD Work Phone: [facility] 04-13-2007 hepatitis B vaccine, pediatric or pediatric/adolescent dosage Norma Moreno MD Work Phone: [facility] Work Phone: 04-13-2007 Meningococcal, MCV4, unspecified conjugate formulation(groups A, C, Y and W-135) Norma Moreno MD Work Phone: [facility] Work Phone: 02-10-2006 hepatitis B vaccine, pediatric or pediatric/adolescent dosage Norma Moreno MD Work Phone: [facility] Work Phone: 02-10-2006 tetanus toxoid, redu nola diphtheria toxoid, and acellular pertussis vaccine, adsorbed Norma Moreno MD Work Phone: [facility] Work Phone: 03-07-2003 hepatitis B vaccine, pediatric or pediatric/adolescent dosage Norma Moreno MD Work Phone: [facility] Work Phone: 03-07-2003 measles, mumps and rubella virus vaccine Norma Moreno MD Work Phone: [facility] Work Phone: 03-19-1996 diphtheria, tetanus toxoids and acellular pertussis vaccine Norma Moreno MD Work Phone: [facility] Work Phone: 03-19-1996 trivalent poliovirus vaccine, live, oral Norma Moreno MD Work Phone: [facility] Work Phone: 11-25-1993 Chicken Pox (disease) Angelica Moreno MD Work Phone: [facility] Work Phone: 11-25-1993 varicella virus vaccine Belinda Moreno MD Work Phone: [facility] Work Phone: 02-05-1992 diphtheria, tetanus toxoids and pertussis vaccine Norma Moreno MD Work Phone: [facility] Work Phone: 02-05-1992 trivalent poliovirus vaccine, live, oral Norma Moreno MD Work Phone: [facility] Work Phone: 11-29-1991 haemophilus influenz ae type b vaccine, HbOC conjugate Norma Moreno MD Work Phone: [facility] Work Phone: 11-29-1991 measles, mumps and rubella virus vaccine Norma Moreno MD Work Phone: [facility] Work Phone: 01-26-1991 diphtheria, tetanus toxoids and pertussis vaccine Norma Moreno MD Work Phone: [facility] Work Phone: 01-26-1991 haemophilus influenz ae type b vaccine, HbOC conjugate Norma Moreno MD Work Phone: [facility] Work Phone: 1990 diphtheria, tetanus toxoids and pertussis vaccine Norma Moreno MD Work Phone: [facility] Work Phone: 1990 haemophilus influenz ae type b vaccine, HbOC conjugate Norma Moreno MD Work Phone: [facility] Work Phone: 1990 trivalent poliovirus vaccine, live, oral Norma Moreno MD Work Phone: [facility] Work Phone: 1990 diphtheria, tetanus toxoids and pertussis vaccine Norma Moreno MD Work Phone: [facility] Work Phone: 1990 haemophilus influenz ae type b vaccine, HbOC conjugate Norma Moreno MD Work Phone: [facility] Work Phone: 1990 trivalent poliovirus vaccine, live, oral Norma Moreno MD Work Phone: [facility] Work Phone: Payers Date Payer Category Payer Unknown [id number] 2019 Unknown [employer] PPO OOS [id number] 2019-Present [phone] [id number] [place] [address] PPO [id number] 2019 Unknown [id number] Social History Date Type Detail Facility Start: 12-11-2016 End: 05-10-2022 Tobacco smoking status NHIS Ex-smoker [facility] End: 07-13-2015 History of tobacco use Current smoker [facility] End: 07-13-2015 History of tobacco use Cigarette Smoker [facility] Start: 12-11-2016 End: 01-05-2024 Cigarettes smoked current (pack per day) - Reported 0.3 [facility] Work Phone: Start: 12-11-2016 End: 05-10-2022 Tobacco use and exposure Smokeless tobacco non-user [facility] Start: 05-31-2021 End: 01-28-2024 Alcohol intake Current drinker of alcohol (finding) [facility] Start: 04-25-2020 History SDOH Alcohol Frequency 5 [facility] Start: 04-25-2020 History SDOH Alcohol Std Drinks 2 [facility] Start: 04-25-2020 History SDOH Alcohol Binge 1 [facility] Start: 08-16-2020 History SDOH Alcohol Comment weekly - bottle over the week [facility] Start: 10-20-2007 Tobacco Comment Lives at home and Mom and Dad smoke. [facility] Start: 1990 Sex Assigned At Not on file [facility] Start: 01-27-2022 [facility] Start: 02-19-2022 End: 04-15-2022 Exposure to SARS-CoV-2 (event) Not sure [facility] Start: 04-25-2020 End: 01-05-2024 Alcohol Use Disorder Identification Test - Consumption [AUDIT-C] [facility] Work Phone: How often to you hav e a drink containing alcohol? 4 or more times a week [facility] Work Phone: How many standard dr inks containing alcohol do you have on a typical day? [address] [facility] How often do you hav e 6 or more drinks on 1 occasion? Never [facility] Adult Depression Scr eening Assessment 0 [facility] Start: 08-16-2020 Gender identity Identifies as female gender (finding) [facility] Work Phone: Start: 08-16-2020 Sexual orientation Heterosexual (finding) [facility] Goals Date Patient Goal Desired Activity /State Clinical Notes 01-05-2021 to 01-28-2024 Ish Sherman MD - 01/28/2024 10:09 AM EDTTelephone Encounter - Norma Lam RN - 01/27/2024 12:40 PM EDTTelephone Encounter - Norma Lam RN - 01/27/2024 12:40 PM EDT Note Date & Type Note Facility 01-28-2024 Note HNO ID: [id number] Author: ISH SHERMAN MD Service: ? Author Type: Physician Type: Progress Notes Filed: 01/28/2024 10:52 Note Text: [employer] Services [employer] offered: Patient accepts, visit chaperoned by Dulce Ott LPN. Dania Santos is a 33 year old female who presents for problem visit with recurrent yeast like sympotoms despite treatment with diflucan twice and monistat. Now with partner of one years duration. Primary sx are itching and burning and would like sti screening. 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 PMH - PAST MEDICAL HISTORY OF 12/01/1997 Color Vision - Normal PAST SURGICAL HISTORY Procedure Laterality Date DANDC, DIAG AND/OR THERAPEUTIC TAB PAST SURGICAL HISTORY OF 2005 wisdom teeth removed PAST SURGICAL HISTORY OF 2009 lap mesenteric cyst removal TONSILLECTOMY PRIMARY/SECONDARY AGE 12/> 02/2007 FAMILY HISTORY Problem Relation Age of Onset Psychiatry Mother depression Migraines Mother COPD Father Stroke Father 55 other (lung cancer) Father 65 smoker Ischemic Heart Disease Father Multiple Sclerosis Sister 32 Cancer Maternal Grandmother Melanoma Maternal Grandmother Cancer Maternal Grandfather prostate No Known Problems Daughter Breast Cancer No Family History Ovarian cancer No Family History Uterine Cancer No Family History Social History Tobacco Use Smoking status: Former Packs/day: .3 Types: Cigarettes Quit date: 07/13/2015 Years since quittin.5 Smokeless tobacco: Never Vaping Use Vaping Use: Former Substances: Nicotine Substance Use Topics Alcohol use: Yes Alcohol/week: 4.0 standard drinks of alcohol Types: 4 Glasses of Wine (5oz) per week Comment: weekly - bottle over the week Drug use: Never Current Outpatient Medications Medication Sig Norethindrone, Contraceptive, (ORTHO MICRONOR) 0.35 mg tablet Take 1 tablet by mouth once daily. (Patient not taking: Reported on 01/05/2024) sertraline (ZOLOFT) 25 mg tablet Take 1 tablet by mouth once daily. (Patient not taking: Reported on 01/05/2024) ibuprofen (MOTRIN) 600 mg tablet Take 1 tablet by mouth every 6 hours as needed for pain. (Patient not taking: Reported on 01/05/2024) Ppoxaysl-Ph-Zar-Fe-FA tab Take 1 tablet by mouth once daily. (Patient not taking: Reported on 01/05/2024) No current facility-administered medications for this visit. Allergies As of Date: 01/28/2024 Allergen Noted Reaction LANOLIN 08/19/2017 Other: See Comments Fully Assessed 01/28/2024 REVIEW OF SYSTEMS Abdomen: No bloating, early satiety, indigestion, or increased flatulence. No abdominal pain, nausea, vomiting, diarrhea, or constipation. Bladder: No dysuria, gross hematuria, urinary frequency, urinary urgency, or incontinence. Breast: No breast lumps, nipple d/c, overlying skin changes, redness or skin retraction. Expanded ROS: N/A Allergies and current medication updated:Yes EXAM: BP 100/68 Wt 153 lb 3.2 oz (69.5kg) LMP 01/11/2024 GENERAL: pleasant, female in no apparent distress ABDOMEN: soft, non-tender, and no masses PELVIC: external genitalia normal, normal Bartholin's glands, urethra, Mcmurray's glands, no vulvar lesions, no cervical lesions, good vaginal support, physiologic discharge present, normal appearing perineal body and perianal region, well estrogenized, scant clumpy discharge but monistat in last 24 hrs BIMANUAL: uterus normal size, shape and consistency, anteverted, no adnexal masses, and non-tender ASSESSMENT AND PLAN: Encounter Diagnosis ICD-10-CM 1. Screen for STD (sexually transmitted disease) Z11.3 2. Vaginal discharge N89.8 3. Vaginal burning N94.9 cultures submitted Ish Sherman MD [facility] 01-28-2024 History of Presen t illness Narrative [employer] offered: Patient accepts, visit chaperoned by Dulce Ott LPN. Dania Santos is a 33 year old female who presents for problem visit with recurrent yeast like sympotoms despite treatment with diflucan twice and monistat. Now with partner of one years duration. Primary sx are itching and burning and would like sti screening. 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 PMH - PAST MEDICAL HISTORY OF 12/01/1997 Color Vision - Normal PAST SURGICAL HISTORY Procedure Laterality Date D&C, DIAG AND/OR THERAPEUTIC TAB PAST SURGICAL HISTORY OF 2005 wisdom teeth removed PAST SURGICAL HISTORY OF 2009 lap mesenteric cyst removal TONSILLECTOMY PRIMARY/SECONDARY AGE 1202/2007 FAMILY HISTORY Problem Relation Age of Onset Psychiatry Mother depression Migraines Mother COPD Father Stroke Father 55 other (lung cancer) Father 65 smoker Ischemic Heart Disease Father Multiple Sclerosis Sister 32 Cancer Maternal Grandmother Melanoma Maternal Grandmother Cancer Maternal Grandfather prostate No Known Problems Daughter Breast Cancer No Family History Ovarian cancer No Family History Uterine Cancer No Family History Social History Tobacco Use Smoking status: Former Packs/day: .3 Types: Cigarettes Quit date: 07/13/2015 Years since quittin.5 Smokeless tobacco: Never Vaping Use Vaping Use: Former Substances: Nicotine Substance Use Topics Alcohol use: Yes Alcohol/week: 4.0 standard drinks of alcohol Types: 4 Glasses of Wine (5oz) per week Comment: weekly - bottle over the week Drug use: Never Current Outpatient Medications Medication Sig Norethindrone, Contraceptive, (ORTHO MICRONOR) 0.35 mg tablet Take 1 tablet by mouth once daily. (Patient not taking: Reported on 01/05/2024) sertraline (ZOLOFT) 25 mg tablet Take 1 tablet by mouth once daily. (Patient not taking: Reported on 01/05/2024) ibuprofen (MOTRIN) 600 mg tablet Take 1 tablet by mouth every 6 hours as needed for pain. (Patient not taking: Reported on 01/05/2024) Utwmnijp-Qh-Fxb-Fe-FA tab Take 1 tablet by mouth once daily. (Patient not taking: Reported on 01/05/2024) No current facility-administered medications for this visit. Allergies As of Date: 01/28/2024 Allergen Noted Reaction LANOLIN 08/19/2017 Other: See Comments Fully Assessed 01/28/2024 REVIEW OF SYSTEMS Abdomen: No bloating, early satiety, indigestion, or increased flatulence. No abdominal pain, nausea, vomiting, diarrhea, or constipation. Bladder: No dysuria, gross hematuria, urinary frequency, urinary urgency, or incontinence. Breast: No breast lumps, nipple d/c, overlying skin changes, redness or skin retraction. Expanded ROS: N/A Allergies and current medication updated:Yes EXAM: BP 100/68 Wt 153 lb 3.2 oz (69.5kg) LMP 01/11/2024 GENERAL: pleasant, female in no apparent distress ABDOMEN: soft, non-tender, and no masses PELVIC: external genitalia normal, normal Bartholin's glands, urethra, Mcmurray's glands, no vulvar lesions, no cervical lesions, good vaginal support, physiologic discharge present, normal appearing perineal body and perianal region, well estrogenized, scant clumpy discharge but monistat in last 24 hrs BIMANUAL: uterus normal size, shape and consistency, anteverted, no adnexal masses, and non-tender ASSESSMENT AND PLAN: Encounter Diagnosis ICD-10-CM 1. Screen for STD (sexually transmitted disease) Z11.3 2. Vaginal discharge N89.8 3. Vaginal burning N94.9 cultures submitted Ish Sherman MD documented in this encounter [facility] 01-27-2024 Miscellaneous Notes Formattin g of this note might be different from the original. Patient called in to the office. Appointment given for STD testing. Norma Lam RN documented in this encounter [facility] 01-27-2024 Telephone encount er Note Patient called in to the office. Appointment given for STD testing. Norma Lam RN [facility] 01-05-2024 Note HNO ID: [id number] Author: ISH SHERMAN MD Service: ? Author Type: Physician Type: Progress Notes Filed: 01/05/2024 09:05 Note Text: Dania is a 33 year old who presents for an annual gynecologic exam , 14 mo post ,with complaints, including 3 yeast infections over the course of the past months that have now resolved. . Stopped BF 6 months ago Menses: q 4-6 weeks with 2 -6 days of flow. 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: Sexual Activity: Yes; Male Contraception: Vasectomy 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 PMH - PAST MEDICAL HISTORY OF 12/01/1997 Color Vision - Normal PAST SURGICAL HISTORY Procedure Laterality Date DANDC, DIAG AND/OR THERAPEUTIC TAB PAST SURGICAL HISTORY OF 2005 wisdom teeth removed PAST SURGICAL HISTORY OF 2009 lap mesenteric cyst removal TONSILLECTOMY PRIMARY/SECONDARY AGE 12/> 02/2007 FAMILY HISTORY Problem Relation Age of Onset Psychiatry Mother depression Migraines Mother COPD Father Stroke Father 55 other (lung cancer) Father 65 smoker Ischemic Heart Disease Father Multiple Sclerosis Sister 32 Cancer Maternal Grandmother Melanoma Maternal Grandmother Cancer Maternal Grandfather prostate No Known Problems Daughter Breast Cancer No Family History Ovarian cancer No Family History Uterine Cancer No Family History SOCIAL HISTORY Social History Tobacco Use Smoking status: Former Packs/day: .3 Types: Cigarettes Quit date: 07/13/2015 Years since quittin.4 Smokeless tobacco: Never Vaping Use Vaping Use: Former Substances: Nicotine Substance Use Topics Alcohol use: Yes Alcohol/week: 4.0 standard drinks of alcohol Types: 4 Glasses of Wine (5oz) per week Comment: weekly - bottle over the week Drug use: Never REVIEW OF SYSTEMS Abdomen: No abdominal pain, nausea, vomiting, diarrhea, or constipation. No bloating, early satiety, indigestion, or increased flatulence. Bladder: No dysuria, gross hematuria, urinary frequency, urinary urgency, or incontinence. Breast: No breast lumps, nipple d/c, overlying skin changes, redness or skin retraction. Allergies and current medication updated:Yes EXAM: Ht 5' 6.5 (1.69m) Wt 152 lb (68.9kg) LMP 12/12/2023 BMI 24.17 kg/(m2). GENERAL: pleasant, female in no apparent distress HEENT: Normocephalic, atraumatic, mucus membranes moist, and no lesions NECK: Supple, full range of motion, no adenopathy, and thyroid normal DERMATOLOGY: Normal, without lesions, non-icteric, and non-hirsute BREAST: soft, non-tender, symmetric, no dominant mass, normal nipple-areolar complex, no lymphadenopathy, and no nipple discharge CHEST: Normal inspiratory effort ABDOMEN: soft, non-tender, and no masses PELVIC: external genitalia normal, normal Bartholin's glands, urethra, Mcmurray's glands, no vulvar lesions, no cervical lesions, good vaginal support, physiologic discharge present, normal appearing perineal body and perianal region, well estrogenized BIMANUAL: uterus normal size, shape and consistency, anteverted, no adnexal masses, non-tender, and no cervical motion tenderness RECTOVAGINAL: deferred. NEURO: alert and oriented x3,exam grossly non-focal EXTREMITIES: normal ASSESSMENT/PLAN: 1) Health maintenance: Pap done with reflex HPV. 2) Contraception: vasectomy. Contraceptive options reviewed and information provided. 3) STD screening: Declined STD check. 4) Follow up one year or sooner as needed Ish Sherman MD [facility] 01-05-2024 History of Presen t illness Narrative Dania is a 33 year old who presents for an annual gynecologic exam , 14 mo post ,with complaints, including 3 yeast infections over the course of the past months that have now resolved. . Stopped BF 6 months ago Menses: q 4-6 weeks with 2 -6 days of flow. 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: Sexual Activity: Yes; Male Contraception: Vasectomy 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 PMH - PAST MEDICAL HISTORY OF 12/01/1997 Color Vision - Normal PAST SURGICAL HISTORY Procedure Laterality Date D&C, DIAG AND/OR THERAPEUTIC TAB PAST SURGICAL HISTORY OF 2005 wisdom teeth removed PAST SURGICAL HISTORY OF 2009 lap mesenteric cyst removal TONSILLECTOMY PRIMARY/SECONDARY AGE 12/> 02/2007 FAMILY HISTORY Problem Relation Age of Onset Psychiatry Mother depression Migraines Mother COPD Father Stroke Father 55 other (lung cancer) Father 65 smoker Ischemic Heart Disease Father Multiple Sclerosis Sister 32 Cancer Maternal Grandmother Melanoma Maternal Grandmother Cancer Maternal Grandfather prostate No Known Problems Daughter Breast Cancer No Family History Ovarian cancer No Family History Uterine Cancer No Family History SOCIAL HISTORY Social History Tobacco Use Smoking status: Former Packs/day: .3 Types: Cigarettes Quit date: 07/13/2015 Years since quittin.4 Smokeless tobacco: Never Vaping Use Vaping Use: Former Substances: Nicotine Substance Use Topics Alcohol use: Yes Alcohol/week: 4.0 standard drinks of alcohol Types: 4 Glasses of Wine (5oz) per week Comment: weekly - bottle over the week Drug use: Never REVIEW OF SYSTEMS Abdomen: No abdominal pain, nausea, vomiting, diarrhea, or constipation. No bloating, early satiety, indigestion, or increased flatulence. Bladder: No dysuria, gross hematuria, urinary frequency, urinary urgency, or incontinence. Breast: No breast lumps, nipple d/c, overlying skin changes, redness or skin retraction. Allergies and current medication updated:Yes EXAM: Ht 5' 6.5 (1.69m) Wt 152 lb (68.9kg) LMP 12/12/2023 BMI 24.17 kg/(m^2). GENERAL: pleasant, female in no apparent distress HEENT: Normocephalic, atraumatic, mucus membranes moist, and no lesions NECK: Supple, full range of motion, no adenopathy, and thyroid normal DERMATOLOGY: Normal, without lesions, non-icteric, and non-hirsute BREAST: soft, non-tender, symmetric, no dominant mass, normal nipple-areolar complex, no lymphadenopathy, and no nipple discharge CHEST: Normal inspiratory effort ABDOMEN: soft, non-tender, and no masses PELVIC: external genitalia normal, normal Bartholin's glands, urethra, Mcmurray's glands, no vulvar lesions, no cervical lesions, good vaginal support, physiologic discharge present, normal appearing perineal body and perianal region, well estrogenized BIMANUAL: uterus normal size, shape and consistency, anteverted, no adnexal masses, non-tender, and no cervical motion tenderness RECTOVAGINAL: deferred. NEURO: alert and oriented x3,exam grossly non-focal EXTREMITIES: normal ASSESSMENT/PLAN: 1) Health maintenance: Pap done with reflex HPV. 2) Contraception: vasectomy. Contraceptive options reviewed and information provided. 3) STD screening: Declined STD check. 4) Follow up one year or sooner as needed Ish Sherman MD documented in this encounter [facility] 11-28-2022 History of Presen t illness Narrative HPI: Patient here for post visit. Delivered a viable GIRL . Uncomplicated post course, doing well. Lochia stopped at 4 weeks. Feeding type BREAST. Menses NO. Emotional status positive outlook. Sexual intercourse NO. Current control Delivery Summary: Kenya Santos [[id number]] Delivery Information: Delivery Date: 10/16/22 Delivery type: Vaginal, Spontaneous Delivering Clinician: Annika Aparicio MD Vacuum Used: No Forceps Used: No Shoulder Dystocia Present: No Lacerations: None Episiotomy: None : Gender: Female Weight (grams): 3561 g One Minute : 8 Five Minute : 9 PHYSICAL EXAMINATION: BP: normal WEIGHT(NL>100 <200#): normal HEENT: normal Thyroid&Neck: normal Back: normal Lungs: normal Heart: normal Breasts: FEEDING Abdomen: normal Extremities: normal Skin: normal Nodes: normal Neurologic: normal Vulva: normal Vagina: normal Cervix: normal Uterus: normal Adnexae: normal Rectum: normal Pelvis: Adequate INVESTIGATIONS: PAP 07/2020 TREATMENTS: HX OF IUD EXPULSION PLAN: Return in one year for routine annual exam, or as needed for any problems. Loy Johnson MD documented in this encounter [facility] 11-08-2022 History of Presen t illness Narrative EARLY VISIT Dania Santos is a 32 year old for a 3 week virtual virtual visit using FanChatter video visit. It required patient-provider interaction for the medical decision making as documented below. I have communicated my name and active licensure. The patient's identity and physical location were verified at the time of this visit. Either the patient or their legal eligibility services representative has been informed of the risks and benefits of -- and alternatives to -- treatment through a remote evaluation and consents to proceed with the evaluation remotely. Pt started Zoloft about 2 1/2 weeks, currently taking 50mg daily. She overall feels about 75% better. She notes side effects of weird dreams. Delivery Summary: Kenya Santos [[id number]] Delivery Information: Delivery Date: 10/16/22 Delivery type: Vaginal, Spontaneous Delivering Clinician: Annika Aparicio MD Vacuum Used: No Forceps Used: No Shoulder Dystocia Present: No Lacerations: None Episiotomy: None Maidens: Gender: Female Weight (grams): 3561 g One Minute : 8 Five Minute : 9 ROS: General: Denies any fever or chills Hypertension Screening: Headache? No. Visual Changes? No Epigastric Pain? No Increased Swelling? No Taking any BP medications at home? No If applicable, monitoring BP at home? (If Yes, include results) No Mood: normal Depression: admits to occasional symptoms of depression. OB Depression and Anxiety Screening- This Encounter (since 11/07/2022) None Feeding: Breast feeding problems: None Bladder: No dysuria, gross hematuria, urinary frequency, urinary urgency, or incontinence Bowel symptoms: Negative for abdominal discomfort, blood in stools or black stools and change in bowel habits Abdomen: N/A Bleeding: stopped at this time Bottom and Perineum: Sore Sleep: no sleep concerns and sleeps in bassinet/crib in parent's room, feels rested [place] since delivery: Not resumed Emotional support: Yes Exercise: N/A Other issues: None 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 PMH - PAST MEDICAL HISTORY OF 12/01/1997 Color Vision - Normal PAST SURGICAL HISTORY Procedure Laterality Date D&C, DIAG AND/OR THERAPEUTIC TAB PAST SURGICAL HISTORY OF 2005 wisdom teeth removed PAST SURGICAL HISTORY OF 2009 lap mesenteric cyst removal TONSILLECTOMY PRIMARY/SECONDARY AGE 12/02/2007 FAMILY HISTORY Problem Relation Age of Onset Psychiatry Mother depression Migraines Mother COPD Father Stroke Father 55 other (lung cancer) Father 65 smoker Ischemic Heart Disease Father Cancer Maternal Grandmother Melanoma Maternal Grandmother Cancer Maternal Grandfather prostate No Known Problems Daughter Breast Cancer No Family History Ovarian cancer No Family History Uterine Cancer No Family History Social History Tobacco Use Smoking status: Former Packs/day: 0.30 Types: Cigarettes Quit date: 07/13/2015 Years since quittin.3 Smokeless tobacco: Never Vaping Use Vaping Use: current everyday user Substances: Nicotine Substance Use Topics Alcohol use: Yes Alcohol/week: 4.0 standard drinks Types: 4 Glasses of Wine (5oz) per week Comment: weekly - bottle over the week ALLERGIES Allergen Reactions Lanolin Other: See Comments itching Current Outpatient Medications Medication Sig sertraline (ZOLOFT) 50 mg tablet Take 1 tablet by mouth once daily. ibuprofen (MOTRIN) 600 mg tablet Take 1 tablet by mouth every 6 hours as needed for pain. [id number] tab Take 1 tablet by mouth once daily. No current facility-administered medications for this visit. PHYSICAL EXAMINATION: General: pleasant,female in no apparent distress, A&O x 3. Incision: N/A ASSESSMENT AND PLAN: 32 year old status post with course complicated by anxiety and depression. Contraception plan: Reinforced 6-week pelvic rest. Encouraged condom usage should patient deviate. Education: resources provided - see MA/RN note Pt feeling better on Zoloft and desires to continue at current 50mg dose. She has also increased frequency of counseling visits which has helped. Follow up: 3 weeks for routine 6 week PP visit or sooner if needed. Lisa Lopez APRN.CNP documented in this encounter [facility] 10-23-2022 Miscellaneous Notes Formattin g of this note might be different from the original. Attempted to call pt & review, plan Zoloft. mailbox full, unable to leave message, addressing through FanChatter. Renee Billingsley MD Per pt med list she has taken prozac in the past. Please sign order if desired and entered correctly, thanks documented in this encounter [facility] 10-23-2022 Miscellaneous Notes Formattin g of this note might be different from the original. This has been answered in alternate message by another CHIEF SUPPLY CHAIN OFFICER provider. Please see that documentation. documented in this encounter [facility] 10-18-2022 Note HNO ID: [id number] Author: Tiffanie Morel APRN.CNM Service: Obstetrics Author Type: Coal Grader Type: Progress Notes Filed: 10/18/2022 7:43 AM Note Text: OBSTETRICS PROGRESS NOTE SERVICE DATE: October 18, 2022 SERVICE TIME: 744 ASSESSMENT: 32 year old female who is Day #2 status post Vaginal, Spontaneous delivery with female . Doing well. Complaint of headache last night- relieved with tylenol/motrin. Has had one hour of sleep last night Plans IUD at 6 weeks visit Breast feeding- has pump at home PLAN: Routine care. Encourage patient to use pain meds. . Control: IUD AT 6 WEEKS Discharge instructions given to patient regarding pelvic rest, bathing, stairs, walking, lifting, driving, and follow-up. Patient expresses understanding. Plan of care discussed with: Provider, RN, Patient. Anticipate discharge day: PPD #2 SUBJECTIVE: Patient has no current complaints. Tolerating PO intake. Urinating without difficulty. Passing flatus. Pain well controlled with current regimen. Lochia decreasing. Ambulating without difficulty. OBJECTIVE: PHYSICAL EXAM: Heart: RR Lungs: clear to auscultation Breasts: Nipples intact, Col[place] expressed, and Baby latching on Abdomen: Soft Bowel sounds present Non-distended Perineum: HEALING Extremities: No calf tenderness and Edema equal bilaterally LAST VITALS: Pulse BP Resp O2 Sat Temp Pain 62 106/70 18 98 % 36.5 ?C (97.7 ?F) 4 Avg Min Max Vitals (last 12 hours) Flowsheet Row Name Average Min Max BP: Systolic 106 106 106 BP: Diastolic 70 70 70 Temp 36.5 ?C (97.7 ?F) 36.5 ?C (97.7 ?F) 36.5 ?C (97.7 ?F) Pulse 62 62 62 Resp 18 18 18 SpO2 98 % 98 % 98 % HT/WT/BMI: Height Weight BMI 167.6 cm (5' 6 ) 88.5 kg (195 lb) 31.47 LABS ABO/RH: 10/16/2022: B; Positive RUBELLA: 03/01/2022: Positive HANDH: Hematocrit (%) Date Value 10/16/2022 35.3 Hemoglobin (g/dL) Date Value 10/16/2022 12.2 Diagnostic tests reviewed for today's visit: Most recent labs SIGNATURE: Tiffanie Alcala APRN.CNM PATIENT NAME: Dania Santos DATE: October 18, 2022 TIME: 7:41 AM [facility] 10-18-2022 Note HNO ID: [id number] Author: Ashli Beltre DO Service: Obstetrics Author Type: Resident Type: Progress Notes Filed: 10/18/2022 6:04 AM Note Text: OBSTETRICS PROGRESS NOTE SERVICE DATE: October 18, 2022 SERVICE TIME: 06:03 AM ASSESSMENT: 32 year old female who is Day #2 status post Vaginal, Spontaneous delivery with female . PLAN: #Routine care - Meeting milestones - Pain is well controlled with current regimen - Lochia appropriate - - PPBC: 6 week IUD - Female Plan of care discussed with: Provider, RN, Patient. #Dispo - per attending Anticipate discharge day: PPD 2 SUBJECTIVE: Patient states she was experiencing a headache and abdominal pain last night that resolved after Tylenol and Motrin. She has no complaints this morning. She is tolerating PO intake. Urinating without difficulty. Passing flatus. Pain well controlled with current regimen. Lochia decreasing. Ambulating without difficulty. She denies chest pain, SOB, lightheadedness, dizziness, or lower extremity edema. OBJECTIVE: PHYSICAL EXAM: General: Well-appearing. In no acute distress. Pleasant. Heart: RR, warm and well perfused Lungs: Normal pulmonary exam Abdomen: Soft. Fundus firm below umbilicus. Non-distended. Extremities: No calf tenderness or edema Skin: Warm and dry Neuro: AANDOx3. No focal deficits. LAST VITALS: Pulse BP Resp O2 Sat Temp Pain 62 106/70 18 98 % 36.5 ?C (97.7 ?F) 0 Avg Min Max Vitals (last 12 hours) Flowsheet Row Name Average Min Max BP: Systolic 107.50 106 109 BP: Diastolic 67.50 65 70 Temp 36.5 ?C (97.7 ?F) 36.5 ?C (97.7 ?F) 36.5 ?C (97.7 ?F) Pulse 63.5 62 65 Resp 17 16 18 SpO2 98 % 98 % 98 % HT/WT/BMI: Height Weight BMI 167.6 cm (5' 6 ) 88.5 kg (195 lb) 31.47 LABS ABO/RH: 10/16/2022: B; Positive RUBELLA: 03/01/2022: Positive HANDH: Hematocrit (%) Date Value 10/16/2022 35.3 Hemoglobin (g/dL) Date Value 10/16/2022 12.2 Diagnostic tests reviewed for today's visit: Most recent labs and imaging results. SIGNATURE: Ashli Beltre DO PATIENT NAME: Dania Santos DATE: October 18, 2022 TIME: 6:03 AM [facility] 10-17-2022 Note HNO ID: [id number] Author: Tiffanie Lake MD Service: Obstetrics Author Type: Resident Type: Progress Notes Filed: 10/17/2022 4:22 AM Note Text: Attestation signed by Annika Aparicio MD at 10/17/2022 8:05 AM I saw and evaluated the patient. Discussed with the resident and agree with resident's findings and plan as documented in the resident's note. Continue observation ppd 1.Annika Aparicio MD OBSTETRICS PROGRESS NOTE SERVICE DATE: October 17, 2022 SERVICE TIME: 4:04 AM ASSESSMENT: 32 year old female who is Day #1 status post Vaginal, Spontaneous delivery with female . PLAN: #Routine care - Meeting milestones - Pain is well controlled with current regimen - Lochia appropriate - - PPBC: 6 week IUD - Female infant Plan of care discussed with: Provider, RN, Patient. Anticipate discharge day: PPD 1 SUBJECTIVE: Patient has no current complaints. Tolerating PO intake. Urinating without difficulty. Passing flatus. Pain well controlled with current regimen. Lochia decreasing. Ambulating without difficulty. OBJECTIVE: PHYSICAL EXAM: Heart: RR, warm and well perfused Lungs: normal pulmonary exam Abdomen: Soft Fundus firm below umbilicus Non-distended Extremities: No calf tenderness and No edema LAST VITALS: Pulse BP Resp O2 Sat Temp Pain 75 110/55 16 95 % 36.6 ?C (97.9 ?F) 0 Avg Min Max Vitals (last 12 hours) Flowsheet Row Name Average Min Max BP: Systolic 114.42 104 126 BP: Diastolic 62.50 53 77 Temp 36.7 ?C (98 ?F) 36.6 ?C (97.9 ?F) 36.8 ?C (98.2 ?F) Pulse 79.03 68 91 Resp 16.67 16 18 SpO2 96.33 % 95 % 97 % HT/WT/BMI: Height Weight BMI 167.6 cm (5' 6 ) 88.5 kg (195 lb) 31.47 LABS ABO/RH: 10/16/2022: B; Positive RUBELLA: 03/01/2022: Positive HANDH: Hematocrit (%) Date Value 10/16/2022 35.3 Hemoglobin (g/dL) Date Value 10/16/2022 12.2 Diagnostic tests reviewed for today's visit: Most recent labs and imaging results. SIGNATURE: Tiffanie Laek MD PATIENT NAME: Dania Santos DATE: October 17, 2022 TIME: 4:04 AM [facility] 10-17-2022 Note HNO ID: [id number] Author: Ally Staples DO Service: Gynecology Author Type: Resident Type: Progress Notes Filed: 10/16/2022 10:34 PM Note Text: FHR with deceleration x 2 minutes. Cervical exam 10100/+[address] Aparicio updated and is in house. Will start pushing with patient now. FHT 150/mod/+accels/isolated decel x2min TOCO: q1-3 Cat II however overall cat I Ally Staples DO [facility] 10-17-2022 Note HNO ID: [id number] Author: Tiffanie Lake MD Service: Obstetrics Author Type: Resident Type: Progress Notes Filed: 10/16/2022 11:00 PM Note Text: OB Progress Note Service Date: October 16, 2022 Service Time: 10:23 PM S: Patient is comfortable with epidural O: Vitals: Status: 10/16/22 1858 10/16/22 1900 10/16/22 1904 10/16/22 1921 BP: 119/72 120/70 115/71 116/71 Pulse: 75 86 86 Resp: 16 Temp: 36.6 ?C (97.9 ?F) TempSrc: Temporal SpO2: Weight: Height: CERVICAL EXAM: Last Exam Notes: Dilation: 4 (10/16/221954 : Tiffanie Lake MD) Effacement (%): 70 (10/16/221954 : Tiffanie Lake MD) Station: -2 (10/16/221954 : Tiffanie Lake MD) Presentation: Vertex (10/16/22 1358 : Tory Beatty DO) MEMBRANES: Status: Membrane Status: Artificial ROM after labor (10/16/221954 : Tiffanie Lake MD) Rupture Date: 10/16/22 (10/16/221954 : Tiffanie Lake MD) Rupture Time: 1949 (10/16/221954 : Tiffanie Lake MD) Amniotic Fluid Color: Clear (10/16/221954 : Tiffaine Lake MD) Amniotic Fluid Amount: Small (10/16/221954 : Tiffanie Lake MD) Additional Findings: None FHT: 120/moderate/+accels/intermitt ent early decels, isolated late deceleration TOCO: q3-4min Cat I FHT Pitocin: 18mU A/P: 32 year old EGA:39w3d. Admitted for Elective Induction of Labor Active Hospital Problems Diagnosis Date Noted Encounter for elective induction of labor 10/16/2022 Elective Induction of Labor GBS negative Pitocin per protocol Epidural in place Amniotomy @1950, clear Hx 2012#13 SIGNATURE: Tiffanie Lake MD PATIENT NAME: Dania Santos DATE: October 16, 2022 TIME: 10:23 PM PAGER/CONTACT #: [phone] [facility] 10-16-2022 Note HNO ID: [id number] Author: Katina Stevens MD Service: Obstetrics Author Type: Resident Type: Progress Notes Filed: 10/16/2022 8:33 PM Note Text: INTRAPARTUM PROGRESS NOTE Patient is comfortable with epidural BP 116/71 Pulse 86 Temp 36.6 ?C (97.9 ?F) (Temporal) Resp 16 Ht 167.6 cm (5' 6 ) Wt 88.5 kg (195 lb) LMP 01/21/2022 (Approximate) SpO2 96% BMI 31.47 kg/m? FHT: 130/moderate variability/present accels/absent decels Halfway: q2-3min Category I Pitocin 10mU/min CERVICAL EXAM: Last Exam Notes: Dilation: 4 (10/16/221954 : Tiffanie Lake MD) Effacement (%): 70 (10/16/221954 : Tiffanie Lake MD) Station: -2 (10/16/221954 : Tiffanie Lake MD) Presentation: Vertex (10/16/22 1358 : Tory Beatty DO) MEMBRANES: Status: Membrane Status: Artificial ROM after labor (10/16/221954 : Tiffanie Lake MD) Rupture Date: 10/16/22 (10/16/221954 : Tiffanie Lake MD) Rupture Time: 1949 (10/16/221954 : Tiffanie Lake MD) Amniotic Fluid Color: Clear (10/16/221954 : Tiffanie Lake MD) Amniotic Fluid Amount: Small (10/16/221954 : Tiffanie Lake MD) A/P: 32 year old at 39w3d Admitted for elective induction of labor Active Hospital Problems Diagnosis Date Noted Encounter for elective induction of labor 10/16/2022 Overview Note: Elective Induction of Labor GBS negative Pitocin per protocol Epidural in place Amniotomy @1950, clear Hx 2012 - 6#13 SIGNATURE: Katina Stevens MD PATIENT NAME: Dania Santos DATE: 10/16/2022 TIME: 8:32 PM PAGER: [phone] [facility] 10-16-2022 Note HNO ID: [id number] Author: Tiffanie Lake MD Service: Obstetrics Author Type: Resident Type: Progress Notes Filed: 10/16/2022 8:05 PM Note Text: OB Progress Note Service Date: October 16, 2022 Service Time: 8:04 PM S: Patient is comfortable with epidural O: Vitals: Status: 10/16/22 1858 10/16/22 1900 10/16/22 1904 10/16/22 192 BP: 119/72 120/70 115/71 116/71 Pulse: 75 86 86 Resp: 16 Temp: 36.6 ?C (97.9 ?F) TempSrc: Temporal SpO2: Weight: Height: CERVICAL EXAM: Last Exam Notes: Dilation: 4 (10/16/221954 : Tiffanie Lake MD) Effacement (%): 70 (10/16/221954 : Tiffanie Lake MD) Station: -2 (10/16/221954 : Tiffanie Lake MD) Presentation: Vertex (10/16/22 1358 : Tory Beatty DO) MEMBRANES: Status: Membrane Status: Artificial ROM after labor (10/16/221954 : Tiffanie Lake MD) Rupture Date: 10/16/22 (10/16/221954 : Tiffanie Lake MD) Rupture Time: 1950 (10/16/221954 : Tiffanie Lake MD) Amniotic Fluid Color: Clear (10/16/221954 : Tiffanie Lake MD) Amniotic Fluid Amount: Small (10/16/221954 : Tiffanie Lake MD) Additional Findings: None FHT: 120/moderate/+accels/no decels TOCO: q2-4min Cat I FHT Pitocin: 10mU A/P: 32 year old EGA:39w3d. Admitted for Elective Induction of Labor Active Hospital Problems Diagnosis Date Noted Encounter for elective induction of labor 10/16/2022 Elective Induction of Labor GBS negative Pitocin per protocol Epidural in place Amniotomy @1950, clear Hx 2012#13 SIGNATURE: Tiffanie Lake MD PATIENT NAME: Dania Santos DATE: October 16, 2022 TIME: 8:04 PM PAGER/CONTACT #: [phone] [facility] 10-16-2022 Note HNO ID: [id number] Author: Tiffanie Lake MD Service: Obstetrics Author Type: Resident Type: Progress Notes Filed: 10/16/2022 7:56 PM Note Text: SVE performed , head well applied. Risks, benefits, alternatives of amniotomy reviewed with patient. Patient comfortable with= epidural and would like to proceed with amniotomy at this time. Amniotomy performed yielding clear fluid. head well applied before and after procedure. Cat I FHT. All questions answered. Dr. Aparicio updated. SIGNATURE: Tiffanie Lake MD PATIENT NAME: Dania Santos DATE: 10/16/2022 TIME: 7:56 PM PAGER/CONTACT #: [phone] [facility] 10-16-2022 Note HNO ID: [id number] Author: Giuseppe Loza APRN.CRNA Service: Anesthesiology Author Type: Nurse Facilities Assistant Type: Anesthesia Procedure Notes Filed: 10/16/2022 6:56 PM Note Text: ANESTHESIOLOGY PROCEDURE NOTE Epidural Block General Information Procedure Start Time/Medication Administration: 10/16/2022 6:34 PM Patient location during procedure: [facility] room Timeout Performed Pre-procedure: timeout performed Consent Obtained: Yes Patient identity confirmed: arm band and patient Reason for block: labor epidural Staffing SYNTHETIC CLOTH BINDING CUTTER: Giuseppe Loza APRN.SYNTHETIC CLOTH BINDING CUTTER SRNA: BATSHEVA Olmedo Performed by: BATSHEVA Preparation Sterility Preparation: hand hygiene performed prior to procedure, sterile gloves, drapes, and procedure tray, surgical cap used, mask used, sterile drape used during line insertion, skin prep agent completely dried prior to procedure Site Prep: Betadine Procedure Details Patient position: sitting Ultrasound Guided: No Patient monitoring: Pulse OX and NIBP Approach: midline Injection technique: STEPHANIE saline Region: lumbar Estimated Interspace: 3-4 Number of Attempts: 2 Needle and Epidural Catheter Needle type: Tuohy Needle gauge: 17G Needle length: 3.5 in Needle insertion depth: 7 cm Catheter Catheter type: side hole Catheter size: 19 G Catheter at skin depth: 12 cmTest Dose Response: negative Assessment Sensory level: lumbar Beginning Pain Score: 0/10 Pain Score After Treatment: 0/10 Events: tolerated well without discomfort and unintended dural puncture Comments Epidural requested prior to ROM. Dural puncture with first attempt by SRNA. Epidural placed by SYNTHETIC CLOTH BINDING CUTTER with second attempt one level lower. SIGNATURE: Giuseppe Loza APRN.SYNTHETIC CLOTH BINDING CUTTER PATIENT NAME: Dania Santos DATE: October 16, 2022 TIME: 6:34 PM CSN: [id number] [facility] 10-16-2022 Note HNO ID: [id number] Author: Tiffanie Lake MD Service: Obstetrics Author Type: Resident Type: Progress Notes Filed: 10/16/2022 5:55 PM Note Text: OB Progress Note Service Date: October 16, 2022 Service Time: 5:55 PM S: Patient is tolerating contractions O: Vitals: Status: 10/16/22 1256 10/16/22 1310 10/16/22 1316 10/16/22 1600 BP: 125/81 120/60 Pulse: 101 Resp: 16 Temp: 36.7 ?C (98.1 ?F) TempSrc: Temporal SpO2: 97% 99% Weight: 88.5 kg (195 lb) Height: 167.6 cm (5' 6 ) CERVICAL EXAM: Last Exam Notes: Dilation: 4 (10/16/22 1358 : Tory Beatty DO) Effacement (%): 70 (10/16/22 1358 : Tory Beatty DO) Station: -3 (10/16/22 [facility] : Tory Beatty DO) Presentation: Vertex (10/16/22 1358 : Tory Beatty DO) MEMBRANES: Status: Membrane Status: Intact (10/16/22 1358 : Tory Beatty DO) Additional Findings: None FHT: 130/moderate/+accels/no decels TOCO: q4min Cat I FHT Pitocin: 6mU A/P: 32 year old EGA:39w3d. Admitted for Elective Induction of Labor Active Hospital Problems Diagnosis Date Noted Encounter for elective induction of labor 10/16/2022 EIOL GBS negative Pitocin per protocol Epidural prn Amniotomy prn Hx 2012#13 SIGNATURE: Tiffanie Lake MD PATIENT NAME: Dania Santos DATE: October 16, 2022 TIME: 5:55 PM PAGER/CONTACT #: [phone] [facility] 10-16-2022 Note HNO ID: [id number] Author: Tory Beatty DO Service: Obstetrics Author Type: Resident Type: Progress Notes Filed: 10/16/2022 2:18 PM Note Text: Attestation signed by Franci Mccarthy MD at 10/16/2022 2:57 PM Attending Note I personally saw and examined the patient. I reviewed the resident's note. I agree with the resident's assessment and plan unless otherwise noted. Signature: Franci Mccarthy MD Date: 10/16/2022 Time: 2:57 PM OBSTETRICS OB ED PROGRESS NOTE SERVICE DATE: October 16, 2022 SERVICE TIME: 2:01 PM Subjective Patient's stated reason for arrival: hammad luna CHIEF COMPLAINT: Rupture of membranes HISTORY OF THE PRESENT ILLNESS: The patient is a 32 year old female, , who is at 39w3d with an JUANA of 10/20/2022, by Ultrasound dating method. Patient is here complaining of ruptured membranes at 1100 AM - thinks her membranes ruptured but unclear. One episode with gush of yellow fluid. None since. Had intercourse last night. Good movement. Denies vaginal bleeding., Denies contractions., Denies leaking of fluid. Has induction scheduled next Friday. Lives 35 minutes away. Would like to stay for an induction today if able. 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 PMH - PAST MEDICAL HISTORY OF 12/01/1997 Color Vision - Normal Vaginal delivery 2012 PAST SURGICAL HISTORY Procedure Laterality Date DANDC, DIAG AND/OR THERAPEUTIC TAB PAST SURGICAL HISTORY OF 2005 wisdom teeth removed PAST SURGICAL HISTORY OF 2009 lap mesenteric cyst removal TONSILLECTOMY PRIMARY/SECONDARY AGE 12/> 02/2007 FAMILY HISTORY Problem Relation Age of Onset Psychiatry Mother depression Migraines Mother COPD Father Stroke Father 55 other (lung cancer) Father 65 smoker Ischemic Heart Disease Father Cancer Maternal Grandmother Melanoma Maternal Grandmother Cancer Maternal Grandfather prostate No Known Problems Daughter Breast Cancer No Family History Ovarian cancer No Family History Uterine Cancer No Family History OB History T0 L1 SAB0 IAB1 Ectopic0 Multiple0 Live Births1 Comment: x 1, meconium aspiration lead to ARDS in , NICU for a few days, girl, 6lbs REVIEW OF SYSTEMS: The remainder of the review of systems is negative. Objective LAST VITALS: Pulse: 101 BP: 125/81 Resp: 16 Temp: 36.7 ?C (98.1 ?F) SpO2: 99 % Height: 167.6 cm (5' 6 ) Weight: 88.5 kg (195 lb) BMI: 31.47 PHYSICAL EXAM: General: WD, WN, comfortable Heart: RR, S1, S2 Lungs: normal pulmonary exam Abdomen: soft, nontender Extremities: no edema SSE: gross rupture neg , Fern: neg ; Nitrazine: neg (pH less than 7) Fern Reference Range Negative for amniotic fluid Nitrazine Reference Range Normal vaginal pH is acidic (below 7.0) with pH above 7.0 (basic) indicating the presence of amniotic fluid. Lab Address: [place] [address] Ob Triage 1 [facility] [address] Dept: [phone] CERVICAL EXAM: Dilation: 4 (10/16/22 1358 : Tory Beatty DO) Station: -3 (10/16/22 1358 : Tory Beatty DO) Effacement (%): 70 (10/16/22 1358 : Tory Beatty DO) Presentation: Vertex (10/16/22 1358 : Tory Beatty DO) MONITORING/ASSESSMENT: testing reassuring - see additional documentation 135/mod/+accels/-decels Cat I Halfway: q6 mins Ultrasound: N/A LABS Diagnostic tests reviewed for today's visit: Most recent labs and imaging results. Assessment/Plan 32 year old EGA:39w3d. For complaint of ruptured membranes Active Hospital Problems Diagnosis Date Noted Uterine contractions 10/16/2022 Negative for ruptured membranes SVE 4 /70/-3 Cat I tracing cx q6 mins on toco Recheck in 2 hours vs offer admission for elective induction per maternal request Will reach out to her OB computer salesperson retail to discuss this Check Udip to r/o UTI Plan of care discussed with: Provider, RN, Patient. SIGNATURE: Tory Beatty DO PATIENT NAME: Dania Santos DATE: October 16, 2022 TIME: 2:01 PM PAGER/CONTACT #: [facility] 10-16-2022 Note HNO ID: [id number] Author: Yamilet Perez RN Service: Nursing Author Type: Registered Nurse Type: Procedures Filed: 10/16/2022 1:35 PM Note Text: Attestation signed by Franci Mccarthy MD at 10/16/2022 2:57 PM PROVIDER INTERPRETATION: Reactive SIGNATURE: Franci Mccarthy MD DATE: October 16, 2022 TIME: 2:56 PM OBSTETRICS NST SUMMARY SERVICE DATE: October 16, 2022 The patient is a 32 year old female, , who is at 39w3d with an JUANA of 10/20/2022, by Ultrasound dating method. NST OBJECTIVE FINDINGS PER NURSE: Start Time: 1308 (10/16/22 1316 : Yamilet Perez RN) Complete Time: 1328 (10/16/22 1330 : Yamilet Perez RN) Indications: Other: Comment (r/o SROM) (10/16/22 1316 : Yamilet Perez RN) Patient Reason For: NST Explanation: Procedure Explained;Monitor Explained;Verbalizes Understanding (10/16/22 1316 : Yamilet Perez RN) Acoustic Stimulator: No (10/16/22 1330 : Yamilet Perez RN) Interventions: MONITORING/ASSESSMENT: Baseline: 125 bpm (10/16/22 1330 : Yamilet Perez RN) Variability: Moderate (6-25 bpm) (10/16/22 1330 : Yamilet Perez RN) Accelerations: Present (10/16/22 1330 : Yamilet Perez RN) Decelerations: Decelerations: None (10/16/22 1330 : Yamilet Perez RN) Contractions: Irregular (10/16/22 1330 : Yamilet Perez RN) Frequency: x1 (10/16/22 1330 : Yamilet Perez RN) Above information forwarded to cindy (10/16/22 1330 : Yamilet Perez RN) for final review and interpretation. SIGNATURE: Yamilet Perez RN PATIENT NAME: Dania Santos DATE: October 16, 2022 TIME: 1:34 PM [facility] 10-16-2022 History of Past i llness Narrative Problem Noted Date Resolved Date Uterine contractions 10/16/2022 10/16/2022 Overview: Negative for ruptured membranes SVE /-3 Cat I tracing cx q6 mins on toco Recheck in 2 hours vs offer admission for elective induction per maternal request Will reach out to her OB computer salesperson retail to discuss this Check Udip to r/o UTI Encounter for elective induction of labor 202210/18/2022 Overview: Elective Induction of Labor GBS negative Pitocin per protocol Epidural in place Amniotomy @1950, clear Hx 2012 - #13 Encounter for supervision of other normal , third trimester 06/10/2022 10/16/2022 Last Assessment & Plan: PLAN: - reviewed importance of kick counts - GBS discussed and obtained today - discussed contraception PP, desires TL if needs CS but otherwise plan IUD PP - labor precautions reviewed - RTO in one week, sooner if needed Juvenile idiopathic scoliosis of thoracic region 12/20/2016 10/16/2022 Pain in thoracic spine 12/20/2016 Dysuria 04/01/2008 10/22/2022 Pruritus of genital organs 04/01/200810/22 Unspecified symptom associated with female genit al organs 04/01/2008 10/22/2022 Scoliosis (and kyphoscoliosis), idiopathic 04/1310/16/2022 documented as of this encounter (statuses as of 10/23/2022) [facility] History of Past illness Narrative* Problem Noted Date Resolved Date Uterine contractions 10/16/2022 10/16/2022 Overview: Negative for ruptured membranes SVE /-3 Cat I tracing cx q6 mins on toco Recheck in 2 hours vs offer admission for elective induction per maternal request Will reach out to her OB computer salesperson retail to discuss this Check Udip to r/o UTI Encounter for elective induction of labor 202210/18/2022 Overview: Elective Induction of Labor GBS negative Pitocin per protocol Epidural in place Amniotomy @1950, clear Hx 2012 6#13 Encounter for supervision of other normal , third trimester 06/10/2022 10/16/2022 Last Assessment & Plan: PLAN: - reviewed importance of kick counts - GBS discussed and obtained today - discussed contraception PP, desires TL if needs CS but otherwise plan IUD PP - labor precautions reviewed - RTO in one week, sooner if needed Juvenile idiopathic scoliosis of thoracic region 12/20/2016 10/16/2022 Pain in thoracic spine 12/20/2016 Dysuria 04/01/2008 10/22/2022 Pruritus of genital organs 04/01/200810/22 Unspecified symptom associated with female genit al organs 04/01/2008 10/22/2022 Scoliosis (and kyphoscoliosis), idiopathic 04/1310/16/2022 documented as of this encounter (statuses as of 10/23/2022) [facility]03-[facility] History of Past illness Narrative* Problem Noted Date Resolved Date Uterine contractions 10/16/2022 10/16/2022 Overview: Negative for ruptured membranes SVE 4 /70/-3 Cat I tracing cx q6 mins on toco Recheck in 2 hours vs offer admission for elective induction per maternal request Will reach out to her OB computer salesperson retail to discuss this Check Udip to r/o UTI Encounter for elective induction of labor 202210/18/2022 Overview: Elective Induction of Labor GBS negative Pitocin per protocol Epidural in place Amniotomy @1950, clear Hx 2012#13 Encounter for supervision of other normal , third trimester 06/10/2022 10/16/2022 Last Assessment & Plan: PLAN: - reviewed importance of kick counts - GBS discussed and obtained today - discussed contraception PP, desires TL if needs CS but otherwise plan IUD PP - labor precautions reviewed - RTO in one week, sooner if needed Juvenile idiopathic scoliosis of thoracic region 12/20/2016 10/16/2022 Pain in thoracic spine 12/20/2016 Dysuria 04/01/2008 10/22/2022 Pruritus of genital organs 04/01/200810/22 Unspecified symptom associated with female genit al organs 04/01/2008 10/22/2022 Scoliosis (and kyphoscoliosis), idiopathic 04/1310/16/2022 documented as of this encounter (statuses as of 11/09/2022) [facility] History of Past illness Narrative* Problem Noted Date Resolved Date Uterine contractions 10/16/2022 10/16/2022 Overview: Negative for ruptured membranes SVE /-3 Cat I tracing cx q6 mins on toco Recheck in 2 hours vs offer admission for elective induction per maternal request Will reach out to her OB computer salesperson retail to discuss this Check Udip to r/o UTI Encounter for elective induction of labor 202210/18/2022 Overview: Elective Induction of Labor GBS negative Pitocin per protocol Epidural in place Amniotomy @1950, clear Hx 2012#13 Encounter for supervision of other normal , third trimester 06/10/2022 10/16/2022 Last Assessment & Plan: PLAN: - reviewed importance of kick counts - GBS discussed and obtained today - discussed contraception PP, desires TL if needs CS but otherwise plan IUD PP - labor precautions reviewed - RTO in one week, sooner if needed Juvenile idiopathic scoliosis of thoracic region 12/20/2016 10/16/2022 Pain in thoracic spine 12/20/2016 3 Dysuria 04/01/2008 10/22/2022 Pruritus of genital organs 04/01/200810/22 Unspecified symptom associated with female genit al organs 04/01/2008 10/22/2022 Scoliosis (and kyphoscoliosis), idiopathic 04/1310/16/2022 documented as of this encounter (statuses as of 11/28/2022) [facility]03-17-2023 Miscellaneous Notes* Addendum Note - Brenda Du Ma - 10/11/2022 9:21 AM EDTAddended by: BRENDA DU MA on: 10/11/2022 09:21 AM Modules accepted: Orders * Quick Notes - Loy Johnson MD - 10/11/2022 8:37 AM EDT Patient presents for routine OB visit. No leaking of fluid, no vaginal bleeding, no contractions atthis time. OB education completed. All questions answered. Loy Johnson M.D. documented in this encounterSt. [facility] Nurse Note* Brenda Du Ma - 10/11/2022 8:13 AM EDT Movement? Active baby Vaginal Bleeding: NO Vaginal fluid leakage of fluid: NO Contractions: [place] type documented in this encounterSt. [facility] Miscellaneous Notes* Addendum Note - Brenda Du Ma - 10/04/2022 10:41 AM ESTAddended by: BRENDA DU MA on: 10/04/2022 10:41 AM Modules accepted: Orders * Quick Notes - Loy Johnson MD - 10/04/2022 10:07 AM EST Patient presents for routine OB visit. No leaking of fluid, no vaginal bleeding, no contractions atthis time. OB education completed. All questions answered. Elizabeth, JUANA= 10/20/2022 Chavies, tdap vag del 2012, PAP 2020, Prior daughter w/ TTN, 6Lb 13 oz, booster covid Bpos, 1 HR 88 GIRL tdap 1/13 GBS neg Peds- Sunshine Sanchez NEWSPAPER PRESS OPERATOR APPRENTICE Would like TL if CS needed/IUD PP Loy Johnson M.D. documented in this encounterSt. [facility] Nurse Note* Brenda Du Ma - 10/04/2022 10:05 AM EST Movement? Active baby Vaginal Bleeding: NO Vaginal fluid leakage of fluid: NO Contractions: [place] type documented in this encounterSt. [facility]-2023 Miscellaneous Notes* Quick Notes - Lisa Lopez APRN.CNP - 09/27/2022 9:50 AM EST S: Dania presents with significant other for routine OB visit. She denies LOF or vaginal bleeding. She reports had a lot of [place] contractions yesterday. Good movement. O: 36w5d, see flow sheet A/P: Problem List Items Addressed This Visit Encounter for supervision of other normal , third trimester - Primary Current Assessment & Plan PLAN: - reviewed importance of kick counts - GBS discussed and obtained today - discussed contraception PP, desires TL if needs CS but otherwise plan IUD PP - labor precautions reviewed - RTO in one week, sooner if needed Relevant Orders URINE OB DIP B/O (Completed) ROUTINE, GROUP B STREP PCR Lisa Lopez APRN.NEWSPAPER PRESS OPERATOR APPRENTICE documented in this encounterSt. [facility]03-[facility]-2023 Nurse Note* Ximena Alvarez - 09/27/2022 9:32 AM EST Movement? Active baby Vaginal Bleeding: NO Vaginal fluid leakage of fluid: NO Contractions: [place] type documented in this encounterSt. [facility]02-[facility]-2023 Miscellaneous Notes* Quick Notes - Loy Johnson MD - 09/20/2022 8:41 AM EST Patient presents for routine OB visit. No leaking of fluid, no vaginal bleeding, no contractions atthis time. OB education completed. All questions answered. Loy Johnson M.D. documented in this [facility]02-24-2023 Nurse Note* Brenda Du Ma - 09/20/2022 8:26 AM EST Movement? Active baby Vaginal Bleeding: NO Vaginal fluid leakage of fluid: NO Contractions: [place] type documented in this [facility]01-13-2023 Miscellaneous Notes* Quick Notes - Loy Johnson MD - 2022 10:30 AM EST Patient presents for routine OB visit. No leaking of fluid, no vaginal bleeding, no contractions atthis time. OB education completed. All questions answered. TDAP Loy Johnson M.D. documented in this [facility]12-16-2022 Miscellaneous Notes* Quick Notes - Loy Johnson MD - 07/12/2022 10:17 AM EST Patient presents for routine OB visit. No leaking of fluid, no vaginal bleeding, no contractions atthis time. OB education completed. All questions answered. Still ilial-sacral joint pain. Loy Johnson M.D. documented in this [facility]12-16-2022 Instructions* Patient Instructions* Brenda Du Ma - 07/12/2022 10:03 AM EST Images from the original note were not included. INSTRUCTIONS FOR ONE HOUR GLUCOSE TOLERANCE TEST Please arrive 15-20 before your scheduled OB appointment and go to the lab first after you drink the glucose drink then report to the OB desk to check in for you scheduled appointment with your doctor or the Nurse Practitioner. ON THE DAY OF TEST PLEASE WATCH SUGAR INTAKE PRIOR TO TEST. (NO SWEETS, CAKE, SYRUP, GLAZED DONUTS, ORANGE JUICE, ECT) No fasting required for this test. No eating or drinking after you drink the Glucola and before theblood draw. Please report to the lab, sign in and inform the coroner forensic technician you are completing the one hour glucosetest. If you are also scheduled for an OB appointment, please check in at the main lead front desk agent to indicate your arrival. Please contact our office with any questions or concerns Thank you [place] [id number] Genevive MD Deann Coleman DO Radhai Prabhakaran, MD Angela Bliss,SOTERO Department: Pediatrics Special interests: Control [facility] [address] [place] [address] DO Rivka Goff MD Jennifer Hovest, CNP Paula Sabella, MD Appointed 2014 Ana Maria Nixon DO Appointed 2006 Refugio Mendez DO Appointed: 2018 documented in this encounterSt. [facility]12-[facility]-2022 Nurse Note* Brenda Du Ma - 07/12/2022 10:03 AM EST Movement? Active baby Vaginal Bleeding: NO Vaginal fluid leakage of fluid: NO Contractions: no contractions documented in this encounterSt. [facility]11-14-2022 Miscellaneous Notes* Quick Notes - Lisa Lopez APRN.SOTERO - 06/10/2022 11:01 AM EST S: Dania presents for routine OB visit. She denies LOF, contractions or vaginal bleeding. She reports good movement. O: 21w1d, see flow sheet Encounter for supervision of other normal , second trimester PLAN: - reviewed anatomy scan - AFP completed - precautions reviewed - RTO in 4 weeks, sooner if needed Chronic midline low back pain without sciatica PLAN: - managing with chiropractor Lisa Lopez APRN.NEWSPAPER PRESS OPERATOR APPRENTICE documented in this encounterSt. [facility]11-14-2022 Nurse Note* Brenda Du Ma - 06/10/2022 10:37 AM EST Movement? Active baby Vaginal Bleeding: NO Vaginal fluid leakage of fluid: NO Contractions: no contractions documented in this encounterSt. [facility]10-14-2022 Miscellaneous Notes* Addendum Note - Mary Lou Meadows MA - 05/10/2022 9:32 AM EDTAddended by: MARY LOU MEADOWS MA on: 05/10/2022 09:32 AM Modules accepted: Orders * Quick Notes - Loy Johnson MD - 05/10/2022 8:28 AM EDT Patient presents for routine OB visit. No leaking of fluid, no vaginal bleeding, no contractions atthis time. OB education completed. All questions answered. Mfm US Dating LMP on: 01/21/2022 GA by LMP 12 w + 1 d JUANA by LMP: 10/28/2022 GA by prior assessment 13 w + 2 d JUANA by prior assessment: 10/20/2022 Ultrasound examination on: 04/16/2022 GA by U/S based upon: CRL GA by U/S 13 w + 0 d JUANA by U/S: 10/22/2022 Assigned: based on ultrasound (CRL), selected on 03/19/2022 Assigned GA 13 w + 2 d Assigned JUANA: 10/20/2022 Loy Johnson M.D. documented in this encounterSt. [facility]10-[facility]22 Nurse Note* Mary Lou Meadows MA - 05/10/2022 8:04 AM EDT Movement? Flutters Vaginal Bleeding: NO Vaginal fluid leakage of fluid: NO Contractions: no contractions documented in this encounterSt. [facility]09-[facility]-2022 History of Present illness Narrative* Mara Iniguez MD - 04/16/2022 3:24 PM EDT Patient is here for First Trimester Aneuploidy Screening See ultrasound report for details. Options for genetic screening (sequential and NIPT) and diagnosis discussed with the patient. Sensitivities and false positive rates discussed. potential insurance coverage issues with NIPT reviewed.NIPT has a 2% chance of being un- reportable. Limitations of screening tests discussed with the patient.She opts for NIPT but plans to check coverage first. 15 minutes were spent counseling regarding testing options. Mara Iniguez MD documented in this encounterSt. [facility]09-19-2022 Miscellaneous Notes* Quick Notes - Lisa Lopez APRN.CNP - 04/15/2022 1:33 PM EDT Pt presents for routine OB visit, is doing well. Reports the nausea is improving. She denies any vaginal bleeding, loss of fluid or regular cramping. Has round ligament discomfort and discussed. Encounter for supervision of other normal in first trimester - NUCHAL TRANSLUCENCY WHI ordered and scheduled. Discussed serum screening at that time as well. - OBSTETRIC ULTRASOUND WHI - GC/CHLAMYDIA DNA DET obtained today - Routine labs completed - Precautions reviewed - RTO in 4 weeks, sooner if needed. Lisa Lopez APRN.CNP documented in this encounterSt. [facility]09-19-2022 Nurse Note* Brenda Du Ma - 04/15/2022 1:08 PM EDT Movement? Too early Vaginal Bleeding: NO Vaginal fluid leakage of fluid: NO Contractions: no contractions documented in this encounterSt. [facility]09-05-2022 Miscellaneous Notes* Quick Notes - Loy Johnson MD - 04/01/2022 3:51 PM EDT Dania Santos is a 31 year old who presents for her first OB appointment. Patient's last menstrual period was 01/21/2022 (approximate). with an EDC of Estimated Date of Delivery: 10/28/22. Previous complications: Prior daughter with TTN Loy Johnson MD documented in this encounterSt. [facility]08-[facility]22 History of Present illness Narrative* Loy Johnson MD - 03/01/2022 3:48 PM EDT Dania Santos is a 31 year old who presents for her first OB appointment. Patient's last menstrual period was 01/21/2022 (approximate). with an EDC of Estimated Date of Delivery: 10/28/22. 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 (Patient not taking: Reported on 05/07/2021 ) No current facility-administered medications on file prior to visit. Social History Tobacco Use Smoking status: Former Packs/day: 0.30 Types: Cigarettes Quit date: 07/13/2015 Years since quittin.7 Smokeless tobacco: Never Vaping Use Vaping Use: current everyday user Substances: Nicotine Substance Use Topics Alcohol use: Yes Alcohol/week: 4.0 standard drinks Types: 4 Glasses of Wine (5oz) per week Comment: weekly - bottle over the week Meds or exposure since LMP? None OBJECTIVE: Physical Exam: HEART: normal, Regular rate and rhythm LUNGS: normal pulmonary exam HEENT: Normal REFLEXES: ABDOMEN: Normal abdominal exam, Abdomen soft, non-tender. Bowel sounds normal. No masses, organomegaly BREASTS: deferred exam PELVIS: Deferred Her uterine size is 6 weeks IMPRESSION: First OB appointment. PLAN: Practice guidelines, nutrition, exercise and activity discussed. screening tests reviewed including 1st trimester screening, quad screening, utrasound, cystic fibrosis, HIV and lab testing discussed. Pt is advised to abstain from any tobacco, alcohol or illicit drug use during the . Loy Johnson MD documented in this encounterSt. [facility]08-[facility]-2022 Miscellaneous Notes* Telephone Encounter - Jaqueline Harris RN - 02/28/2022 9:22 AM EDT Pt returned call and is scheduled with Dr Johnson tomorrow. May need dating scan ordered Informed her scan not typically done at first appt with Dr Johnson but if needed, he will order one through radiology or MFM. Pt voiced understanding * Telephone Encounter - Jaqueline Harris RN - 02/28/2022 8:32 AM EDT Attempted to reach patient to help schedule NEW OB visit. Currently 9w3d Left detailed message on personal VM. Pt wants Chavies delivery Thursday 03/[address] Johnson Next available is 03/[address] Castro at 10 Hold placed on both appts If the 5th does not work, could see if Dr Johnson hasn't anything else in Art * Telephone Encounter - Norma Barkley RN - 02/27/2022 4:21 PM EDT Call placed to patient to triage for new OB appt. LMP 12/24. Started a PNV. + cats in the home, patient aware of litter box precautions. Denies pelvic pain aside from mild cramping, denies vaginal bleeding. Precautions for both discussed. Patient has hx endometriosis. Wants to establish care with a provider at [facility] who delivers at . Routing to [facility] staff. documented in this encounterSt. [facility]06-[facility]-2021 NoteHNO ID: [id number] Author: EVELYNE Barone Service: Radiology Author Type: Clinical Field Sales Engineer Type: Progress Notes Filed: 01/05/2021 9:58 AM Note Text: Radiology Service Progress Note PATIENT NAME: Dania Santos DATE OF SERVICE: January 05, 2021 TIME: 9:58 AM PATIENT IDENTITY VERIFICATION COMPLETED USING TWO (2) IDENTIFIERS: Name and Date of confirmed by patient verbally. FALL SCREENING: Has the patient had 2 falls in the last year or 1 fall with injury or currently using an Ambulatory Assistive Device (Walker, Cane, Wheelchair, Crutches, etc.)? No PATIENT GENDER DATA: Female. status: : No status: N/A PATIENT RELEVANT IMPLANT DATA REVIEWED: Not Applicable RADIOLOGY DEPARTMENT: Ultrasound PERIPHERAL IV DATA: Not applicable SIGNED BY: EVELYNE Barone January 05, 2021 9:58 AMWv[facility] [id number] NoteHNO ID: [id number] Author: EVELYNE Barone Service: Radiology Author Type: Clinical Field Sales Engineer Type: Progress Notes Filed: 01/05/2021 12:50 PM Note Text: Radiology Service Progress Note PATIENT NAME: Dania Santos DATE OF SERVICE: January 05, 2021 TIME: 12:50 PM PATIENT IDENTITY VERIFICATION COMPLETED USING TWO (2) IDENTIFIERS: Name and Date of confirmed by patient verbally. FALL SCREENING: Has the patient had 2 falls in the last year or 1 fall with injury or currently using an Ambulatory Assistive Device (Walker, Cane, Wheelchair, Crutches, etc.)? No PATIENT GENDER DATA: Female. status: : No status: N/A PATIENT RELEVANT IMPLANT DATA REVIEWED: Not Applicable RADIOLOGY DEPARTMENT: Ultrasound PERIPHERAL IV DATA: Not applicable SIGNED BY: EVELYNE Barone January 05, 2021 12:[facility] Diagnosis care, subsequent in first trimester- Primary documented in this encounter [facility] note* Diagnosis Encounter for supervision of other normal in first trimester- Primary 12 weeks gestation of state, incidental documented in this encounter [facility] note* Diagnosis Encounter for (NT) nuchal translucency scan- Primary Other specified screening 13 weeks gestation of state, incidental documented in this encounter [facility] note* Diagnosis care, subsequent in second trimester- Primary [facility]* Diagnosis Encounter for supervision of other normal , second trimester- Primary Chronic midline low back pain without sciatica 21 weeks gestation of state, incidental [facility]* Diagnosis care, subsequent in second trimester- Primary [facility]* Diagnosis Encounter for supervision of normal first in third trimester- Primary Supervision of normal first documented in this encounter [facility] note* Diagnosis Encounter for supervision of other normal , third trimester- Primary [facility]* Diagnosis Encounter for supervision of other normal , third trimester- Primary 36 weeks gestation of state, incidental [facility]* Diagnosis care, subsequent in third trimester- Primary [facility]* Diagnosis care, subsequent in third trimester- Primary [facility]* Diagnosis Moderate episode of recurrent major depressive disorder (HCC) [facility]* Diagnosis depression- Primary Mental disorders of mother, [facility]* Diagnosis state- Primary Routine follow-up [facility]* Diagnosis Encounter for gynecological examination (general) (routine) without abnormal findings- Primary Screening for cervical cancer Screening for malignant neoplasm of the cervix Encounter for screening for human papillomavirus (HPV) Special screening examination for human papillomavirus (HPV) [facility]* Diagnosis Screen for STD (sexually transmitted disease)- Primary Screening examination for venereal disease Vaginal discharge Leukorrhea, not specified as infective Vaginal burning Other specified symptom associated with female genital organs documented in this [facility] Diagnostic Procedure Only (Routine) - Closed Specialty Diagnoses / Procedures Referred By Contac t Referred To Contact [facility] Diagnoses care, subsequent in first trimester Procedures OBSTETRIC ULTRASOUND WHI US PREG UTERUS AFTER 1ST TRIMEST GESTATION Loy Johnson MD [address] [place] [id number] [address] Referral ID Status Reason Start Date Expiration Date V isits Requested Visits Authorized [id number] Closed Auto-Generate d Referral 03/04/2022 07/27/2022 1 1 [facility] for referral (narrative)* Diagnostic Procedure Only (Routine) - Pending Review Specialty Diagnoses / Procedures Referred By Contac t Referred To Contact [facility] Diagnoses Encounter for supervision of other normal in first trimester Procedures OBSTETRIC ULTRASOUND WHI US PREG UTERUS AFTER 1ST TRIMEST GESTATION Lisa Lopez APRN.CNP [address] [place] [address] [facility] [address] [place] [address] Referral ID Status Reason Start Date Expiration Date Visits Requested Visits Authorized [id number] Pending Review Auto-Generat ed Referral 04/15/2022 04/15/2023 1 1 * Diagnostic Procedure Only (Routine) - Authorized Specialty Diagnoses / Procedures Referred By Contac t Referred To Contact [facility] Diagnoses Encounter for supervision of other normal in first trimester Procedures NUCHAL TRANSLUCENCY WHI US NUCHAL TRANSLUCENCY 1ST GESTATION Lisa Lopez APRN.CNP [address] [place] [address] [facility] [address] [place] [address] Referral ID Status Reason Start Date Expiration Date Visits Requested Visits Authorized [id number] Authorized Auto-Generat ed Referral 04/15/2022 07/27/[address] [facility] Diagnostic Procedure Only (Routine) - Closed Specialty Diagnoses / Procedures Referred By Corina cortes Referred To Contact [facility] Diagnoses Encounter for supervision of other normal in first trimester Procedures NUCHAL TRANSLUCENCY WHI US NUCHAL TRANSLUCENCY 1ST GESTATION Lisa Lopez APRN.CNP [address] [place] [address] [facility] [address] [place] [address] Referral ID Status Reason Start Date Expiration Date V isits Requested Visits Authorized [id number] Closed Auto-Generate d Referral 04/15/2022 07/27/[address] [facility] Summary Purpose Family History No Family History Records FoundNo Family History Records FoundNo Family History Records Found Advance Directives No Advanced Directives Records FoundDocuments on File Type Date Recorded Patient Executive Director Sheltered Workshop Expl anation Advance Directive(s) 08/16/2020 10:23 AM Health Concerns Problem Noted Date OB Reminders 04/12/2022 Problem Noted Date OB Reminders 04/12/2022 Problem Noted Date OB Reminders 04/12/2022 Problem Noted Date OB Reminders 04/12/2022 Problem Noted Date OB Reminders 04/12/2022 Problem Noted Date OB Reminders 04/12/2022 Problem Noted Date OB Reminders 04/12/2022 Problem Noted Date OB Reminders 04/12/2022 Problem Noted Date Dedenter 10/18/2022 Problem Noted Date Dedenter 10/18/2022 Problem Noted Date Dedenter 10/18/2022 Additional Source Comments INFORMATION SOURCE (unrecogn ized section and content) DATE CREATED AUTHOR 01/06/2021 [facility] DATE CREATED AUTHOR AUTHOR'S ORGANIZ ATION 10/19/2022 [facility] DATE CREATED AUTHOR AUTHOR'S ORGANIZ ATION 01/29/2024 [facility] Source Comments (unrecognize d section and content) In the event this informatio n is protected by the Federal Confidentiality of Alcohol and Drug Abuse Patient Records regulations: The Federal rules restrict any use of the information to criminally investigate or prosecute any alcohol or drug abuse patient.[facility] this information is protected by the Federal Confidentiality of Alcohol and Drug Abuse Patient Records regulations: The Federal rules restrict any use of the information to criminally investigate or prosecute any alcohol or drug abuse patient.[facility] event this information is protected by the Federal Confidentiality of Alcohol and Drug Abuse Patient Records regulations: The Federal rules restrict any use of the information to criminally investigate or prosecute any alcohol or drug abuse patient.[facility] event this information is protected by the Federal Confidentiality of Alcohol and Drug Abuse Patient Records regulations: The Federal rules restrict any use of the information to criminally investigate or prosecute any alcohol or drug abuse patient.[facility] event this information is protected by the Federal Confidentiality of Alcohol and Drug Abuse Patient Records regulations: The Federal rules restrict any use of the information to criminally investigate or prosecute any alcohol or drug abuse patient.[facility] event this information is protected by the Federal Confidentiality of Alcohol and Drug Abuse Patient Records regulations: The Federal rules restrict any use of the information to criminally investigate or prosecute any alcohol or drug abuse patient.[facility] event this information is protected by the Federal Confidentiality of Alcohol and Drug Abuse Patient Records regulations: The Federal rules restrict any use of the information to criminally investigate or prosecute any alcohol or drug abuse patient.[facility] event this information is protected by the Federal Confidentiality of Alcohol and Drug Abuse Patient Records regulations: The Federal rules restrict any use of the information to criminally investigate or prosecute any alcohol or drug abuse patient.[facility] event this information is protected by the Federal Confidentiality of Alcohol and Drug Abuse Patient Records regulations: The Federal rules restrict any use of the information to criminally investigate or prosecute any alcohol or drug abuse patient.[facility] event this information is protected by the Federal Confidentiality of Alcohol and Drug Abuse Patient Records regulations: The Federal rules restrict any use of the information to criminally investigate or prosecute any alcohol or drug abuse patient.[facility] event this information is protected by the Federal Confidentiality of Alcohol and Drug Abuse Patient Records regulations: The Federal rules restrict any use of the information to criminally investigate or prosecute any alcohol or drug abuse patient.[facility] the event this information is protected by the Federal Confidentiality of Alcohol and Drug Abuse Patient Records regulations: The Federal rules restrict any use of the information to criminally investigate or prosecute any alcohol or drug abuse patient.[facility] the event this information is protected by the Federal Confidentiality of Alcohol and Drug Abuse Patient Records regulations: The Federal rules restrict any use of the information to criminally investigate or prosecute any alcohol or drug abuse patient.[facility] the event this information is protected by the Federal Confidentiality of Alcohol and Drug Abuse Patient Records regulations: The Federal rules restrict any use of the information to criminally investigate or prosecute any alcohol or drug abuse patient.[facility] the event this information is protected by the Federal Confidentiality of Alcohol and Drug Abuse Patient Records regulations: The Federal rules restrict any use of the information to criminally investigate or prosecute any alcohol or drug abuse patient.[facility] the event this information is protected by the Federal Confidentiality of Alcohol and Drug Abuse Patient Records regulations: The Federal rules restrict any use of the information to criminally investigate or prosecute any alcohol or drug abuse patient.[facility] event this information is protected by the Federal Confidentiality of Alcohol and Drug Abuse Patient Records regulations: The Federal rules restrict any use of the information to criminally investigate or prosecute any alcohol or drug abuse patient.[facility] the event this information is protected by the Federal Confidentiality of Alcohol and Drug Abuse Patient Records regulations: The Federal rules restrict any use of the information to criminally investigate or prosecute any alcohol or drug abuse patient.[facility] event this information is protected by the Federal Confidentiality of Alcohol and Drug Abuse Patient Records regulations: The Federal rules restrict any use of the information to criminally investigate or prosecute any alcohol or drug abuse patient.[facility] the event this information is protected by the Federal Confidentiality of Alcohol and Drug Abuse Patient Records regulations: The Federal rules restrict any use of the information to criminally investigate or prosecute any alcohol or drug abuse patient.[facility] the event this information is protected by the Federal Confidentiality of Alcohol and Drug Abuse Patient Records regulations: The Federal rules restrict any use of the information to criminally investigate or prosecute any alcohol or drug abuse patient.[facility] Care Teams (unrecognized sec tion and content) Atmospheric Chemist Relationship Specialty Start Date End Date Prabhakar Calderon MD [address] [place] [address] PCP - General Family Practice 08/16/20 Atmospheric Chemist Relationship Specialty Start Date End Date Prabhakar Calderon MD [address] [place] [address] PCP - General Family Practice 08/16/20 Atmospheric Chemist Relationship Specialty Start Date End Date Prabhakar Calderon MD [address] [place] [address] PCP - General Family Practice 08/16/20 Atmospheric Chemist Relationship Specialty Start Date End Date Prabhakar Calderon MD [address] [place] [address] PCP - General Family Practice 08/16/20 Atmospheric Chemist Relationship Specialty Start Date End Date Prabhakar Calderon MD [address] [place] [address] PCP - General Family Medicine 08/16/20 Atmospheric Chemist Relationship Specialty Start Date End Date Prabhakar Calderon MD [address] [place] [address] PCP - General Family Medicine 08/16/20 Atmospheric Chemist Relationship Specialty Start Date End Date Prabhakar Calderon MD [address] [place] [address] PCP - General Family Medicine 08/16/20 Atmospheric Chemist Relationship Specialty Start Date End Date Prabhakar Calderon MD [address] [place] [address] PCP - General Family Medicine 08/16/20 Atmospheric Chemist Relationship Specialty Start Date End Date Prabhakar Calderon MD [address] [place] [address] PCP - General Family Medicine 08/16/20 Atmospheric Chemist Relationship Specialty Start Date End Date Prabhakar Calderon MD [address] [place] [address] PCP - General Family Medicine 08/16/20 Atmospheric Chemist Relationship Specialty Start Date End Date Prabhakar Calderon MD [address] [place] [address] PCP - General Family Medicine 08/16/20 Atmospheric Chemist Relationship Specialty Start Date End Date Prabhakar Calderon MD [address] [place] [address] PCP - General Family Medicine 08/16/20 Atmospheric Chemist Relationship Specialty Start Date End Date Prabhakar Calderon MD [address] [place] [address] PCP - General Family Medicine 08/16/20 Atmospheric Chemist Relationship Specialty Start Date End Date Prabhakar Calderon MD [address] [place], [place] [id number] PCP - General Family Medicine 08/16/20 Atmospheric Chemist Relationship Specialty Start Date End Date Prabhakar Calderon MD [address] [place], [place] [id number] PCP - General Family Medicine 08/16/20 Atmospheric Chemist Relationship Specialty Start Date End Date Prabhakar Calderon MD [address] [place], [place] [id number] PCP - General Family Medicine 08/16/20 Atmospheric Chemist Relationship Specialty Start Date End Date Prabhakar Calderon MD [address] [place], [place] [id number] PCP - General Family Medicine 08/16/20 Reason for Visit (unrecogniz ed section and content) Reason Comments Care Coordination OB Peter pool Reason Comments Follow Up Reason Comments Follow Up Reason Comments Care Reason Comments Follow Up Reason Comments Care Reason Comments Routine Reason Comments Yearly Exam Reason Comments STD check FOR RECORDS PERTAINING TO PATIENTS WHO ARE OR HAVE BEEN ENROLLED IN A CHEMICAL DEPENDENCY/SUBSTANCEABUSE PROGRAM, SOME INFORMATION MAY BE OMITTED. This clinical summary was aggregated from multiple sources. Caution should be exercised in using it in the provision of clinical care. This summary normalizes information from multiple sources, and as a consequence, information in this document may materially change the coding, format and clinical context of patient data. In addition, data may be omitted in some cases. CLINICAL DECISIONS SHOULD BE BASED ON THE PRIMARY CLINICAL RECORDS. [facility] t[facility]n [employer] [facility]. provides no warranty or guarantee of the accuracy or completeness of information in this document.
[2024-05-22 05:08] LABS: Chlamydia By Nucleic Acid AMP Negative (Negative); Gonococcus By Nucleic Acid AMP Negative (Negative)
== END | disposition home or self-care (01) ==
PROVIDERS: PCP Family Medicine Sports Medicine; Referring Provider Nurse Practitioner Family; Visit Provider Nurse Practitioner Family
DX: B37.31 Acute candidiasis of vulva and vagina (principal); Z20.2 Contact with and (suspected) exposure to infections with a predominantly sexual mode of transmission
CPT/HCPCS: 87070; 87205; 87491; 87591

== ENCOUNTER → 2024-11-23 | Outpatient (CLI) | payer BC, SELFPAY | END | disposition home or self-care (01) | PROVIDERS: PCP Family Medicine Sports Medicine; Referring Provider Nurse Practitioner Family; Visit Provider Nurse Practitioner Family | DX: N89.8 Other specified noninflammatory disorders of vagina (principal) | CPT/HCPCS: 87070; 87205 ==